=== PATIENT | male | born 1955 | race Caucasian/White ===

== ENCOUNTER → 2019-08-20 14:45 | Outpatient (BNVA) | payer SELFPAY | PROVIDERS: Family Provider Nurse Practitioner; PCP Nurse Practitioner; Visit Provider Nurse Practitioner | DX: I10 Essential (primary) hypertension (principal); E78.2 Mixed hyperlipidemia; E11.65 Type 2 diabetes mellitus with hyperglycemia; Z79.4 Long term (current) use of insulin | CPT/HCPCS: 80053; 80061; 81000; 83036 ==

== ENCOUNTER 2020-02-02 13:03 | Inpatient (IN) | payer MEDICARE, SELFPAY ==
[2020-02-02] VITALS (52 sets, daily range): BP systolic 121–178; BP diastolic 71–98; PULSE 78–124; RESP 1–20; TEMP 36.4–36.6; O2SAT 68–99; BMI 26.4
--- NOTE | 2020-02-02 13:29 | W.ED.GENADLT ---
Documented by User: LOLIS Lozoya 02/02/20 15:00 HPI - General Adult General: Chief complaint: General Medical Stated complaint: back pain, decreased intake Time Seen by Provider: 02/02/20 13:20 History of Present Illness: HPI narrative: Presents with complaint of worsening back pain that has gone down his left leg but is in the left lower sided back that he has had it for about 3 weeks has decreased intake over the last couple weeks he said he just hurts so bad he did not feel like eating has been taking Tylenol and Aleve without much relief. Patient has a history of chronic low back problems. Has been to multiple ERs for this. Patient is also diabetic. Patient said he is not taking much fluids but he has been urinating. Just not been eating food because of the pain. Has had some abdominal discomfort just drinking Pedialyte Onset (ago): week(s) Location: back Radiation: extremity Severity: severe Severity scale (1-10): 10 Quality: aching Pain Consistency: constant Relieving factors: immobilization Exacerbating factors: movement Associated symptoms: Reports decreased appetite; Deny chest pain, dyspnea, headache(s), nausea, rash or vomiting Treatments prior to arrival: NSAID, aspirin and cold therapy Review of Systems Const: Denies: fever(s), chills or body aches Eyes: Denies: change in vision or blurry vision ENMT: Denies: throat pain or nasal congestion Card: Denies: chest pain or dyspnea on exertion Resp: Denies: dyspnea, productive cough or non-productive cough GI: Reports: abdominal pain; Denies: nausea or vomiting : Denies: difficulty urinating Musc: Reports: back pain (Patient complains about low back pain with sciatica down left leg at times but pain in his low back is since been quite a while he states); Denies: extremity pain Skin/Breast: Denies: rash Neuro: Denies: headache(s) Psych: Denies: anxiety or depression Mode/Lymph: Denies: easy bruising [facility] PFSH: Medical History (Updated 02/02/20 @ 15:42 by Judith Booth) Controlled diabetes mellitus with hyperglycemia, with long-term current use of insulin Diabetic neuropathy Essential (primary) hypertension Mixed hyperlipidemia Personal history of nicotine dependence Surgical History No history of previous surgery Family History Other Diabetes Heart disease Social History (Updated 02/02/20 @ 13:17 by Ben Jain RN) Smoking and tobacco status: current every day smoker Second hand smoke exposure: Yes Smoking risk assessment/counseling performed?: Yes Alcohol intake: current Alcohol intake frequency: few times a month Substance/Drug Use: never Desire information about substance/drug rehabilitation?: No Counseling given: No Caregiver/support person: No Lives independently: Yes Household members: none Housing: House Marital status: service: No Current occupational status: employed Current occupational exposures/hazards: No History of recent travel: No Current gender identity: Male Physical Exam Narrative: EXAM NARRATIVE: Patient has ketone smell to his breath Const: COMMON NORMALS: no acute distress, average body habitus and patient oriented x3 HENMT: COMMON NORMALS: normocephalic HEAD & SCALP: normal to inspection and normocephalic FACE & SINUS: normal facial exam Eye: COMMON NORMALS: conjunctivae normal GENERAL EYE: appearance normal, both eyes and all related structures CONJUNCTIVA: Yes conjunctivae normal Neck/C-Spine: COMMON NORMALS: no JVD Chest: COMMONS NORMALS: normal inspection of the chest Resp: COMMON NORMALS: normal respiratory effort and clear to auscultation bilaterally AUSCULTATION: clear to auscultation bilaterally Cardio: COMMON NORMALS: no JVD, regular rate and regular rhythm RATE: regular rate RHYTHM: regular rhythm GI: COMMON NORMALS: Normal to inspection, nondistended, normoactive bowel sounds present : COMMON NORMALS: Yes no CVA tenderness BLADDER/KIDNEY EXAM: Yes no CVA tenderness Back/Pelvis: COMMON NORMALS: no CVA tenderness LUMBAR SPINE/LOWER BACK: Yes normal to inspection OTHER: Patient laying on his right side he does not really want to move because he said he is found in sweets but has no tenderness to the sciatic nerve but it is slightly inflamed because he said feels me pushing on it. Neurovascular distal appears intact abdomen soft nontender no flank pain Extremity: COMMON NORMALS: normal to inspection and full ROM Neuro: COMMON NORMALS: patient oriented x3 Course Vital Signs: Vital signs: Vital Signs Temperature 97.6 F 02/02/20 13:11 Pulse Rate 78 02/02/20 14:44 Respiratory Rate 17 02/02/20 14:47 Blood Pressure 144/82 02/02/20 14:44 Pulse Oximetry 92 02/02/20 14:47 MDM - General Adult Lab Data: Labs: Lab Results 02/02/20 02/02/20 02/02/20 Range/Units 13:35 13:35 13:35 WBC 13.6 H (4.0-10.0) 10^3/ uL RBC 5.09 (4.1-5.3) 10^6/u L Hgb 17.9 H (11.7-16.6) g/dL Hct 51.1 (42.0-52.0) % MCV 100.4 H (80-94) fL MCH 35.2 H (28.0-34.0) pg MCHC 35.0 (30.0-36.0) g/dL RDW 11.9 L (12.1-15.1) % Plt Count 344 (130-400) 10^3/c mm MPV 9.3 (7.4-10.4) fL Neut % (Auto) 74.0 % Lymph % (Auto) 13.4 % [place] % (Auto) 9.3 % Eos % (Auto) 1.9 % Baso % (Auto) 1.1 % Neut # (Auto) 10.04 H (1.8-7.7) 10^3/u L Lymph # (Auto) 1.8 (0.8-4.8) 10^3/u L [place] # (Auto) 1.3 H (0.2-0.9) 10^3/u L Eos # (Auto) 0.3 (0.0-0.8) 10^3/u L Baso # (Auto) 0.2 H (0.0-0.1) 10^3/u L Nucleated RBC % (a uto) 0 % Nucleated RBCs # 0.0 /100WBC ESR 7 (0-10) mm/hr Specimen Type Sample Site ABG pH (7.35-7.45) ABG pCO2 (35-45) mmHg ABG pO2 (80.0-100.0) mmH g ABG HCO3 (22-26) mmol/L ABG Base Excess (-2.0-2.0) mmol/ L Nikhil Test Hematocrit (42-52) % O2 Delivery Device FiO2 % Manufacturing Engineer Chief ID Sodium 130 L (136-145) mmol/L Potassium 4.4 (3.5-5.1) mmol/L Chloride 91 L (98-107) mmol/L Carbon Dioxide 10 L (22-29) mmol/L Anion Gap 33.4 H (5-19) BUN 25 H (8-23) mg/dL Creatinine 1.3 H (0.7-1.2) mg/dL GFR Calculation 55.4 L (90-130) mL/min Glucose 411 H (65-115) mg/dL Calculated Osmolal ity 284 L (285-295) mOsm/k g Lactate (0.5-2.2) mmol/L Calcium 9.6 (8.5-10.5) mg/dL Total Bilirubin 0.6 (0.15-1.2) mg/dL AST 8 (0-40) U/L ALT 9 (0-41) U/L Alkaline Phosphata se 93 (40-130) IU/L Troponin T Baselin e (0-15) ng/L C-Reactive Protein 1.3 (0.0-4.9) mg/L Total Protein 7.0 (6.6-8.7) g/dL Albumin 4.0 (3.5-5.2) g/dL Globulin 3.0 (1.3-4.6) g/dL Lipase 19 (13-60) U/L Urine Color (Yellow) Urine Appearance (CLEAR) Urine pH (5-7) Ur Specific Gravit y (1.005-1.030) Urine Protein (Negative) Urine Glucose (UA) (Normal) Urine Ketones (Negative) Urine Blood (Negative) Urine Nitrate (Negative) Urine Bilirubin (NEGATIVE) Urine Urobilinogen (Negative) mg/dL Ur Leukocyte Greta ase (Negative) Serum Ketones (Negative) 02/02/20 02/02/20 02/02/20 Range/Units 13:35 13:35 13:35 WBC (4.0-10.0) 10^3/ uL RBC (4.1-5.3) 10^6/u L Hgb (11.7-16.6) g/dL Hct (42.0-52.0) % MCV (80-94) fL MCH (28.0-34.0) pg MCHC (30.0-36.0) g/dL RDW (12.1-15.1) % Plt Count (130-400) 10^3/c mm MPV (7.4-10.4) fL Neut % (Auto) % Lymph % (Auto) % [place] % (Auto) % Eos % (Auto) % Baso % (Auto) % Neut # (Auto) (1.8-7.7) 10^3/u L Lymph # (Auto) (0.8-4.8) 10^3/u L [place] # (Auto) (0.2-0.9) 10^3/u L Eos # (Auto) (0.0-0.8) 10^3/u L Baso # (Auto) (0.0-0.1) 10^3/u L Nucleated RBC % (a uto) % Nucleated RBCs # /100WBC ESR (0-10) mm/hr Specimen Type Sample Site ABG pH (7.35-7.45) ABG pCO2 (35-45) mmHg ABG pO2 (80.0-100.0) mmH g ABG HCO3 (22-26) mmol/L ABG Base Excess (-2.0-2.0) mmol/ L Nikhil Test Hematocrit (42-52) % O2 Delivery Device FiO2 % Manufacturing Engineer Chief ID Sodium (136-145) mmol/L Potassium (3.5-5.1) mmol/L Chloride (98-107) mmol/L Carbon Dioxide (22-29) mmol/L Anion Gap (5-19) BUN (8-23) mg/dL Creatinine (0.7-1.2) mg/dL GFR Calculation (90-130) mL/min Glucose (65-115) mg/dL Calculated Osmolal ity (285-295) mOsm/k g Lactate 2.3 H (0.5-2.2) mmol/L Calcium (8.5-10.5) mg/dL Total Bilirubin (0.15-1.2) mg/dL AST (0-40) U/L ALT (0-41) U/L Alkaline Phosphata se (40-130) IU/L Troponin T Baselin e 16 H (0-15) ng/L C-Reactive Protein (0.0-4.9) mg/L Total Protein (6.6-8.7) g/dL Albumin (3.5-5.2) g/dL Globulin (1.3-4.6) g/dL Lipase (13-60) U/L Urine Color (Yellow) Urine Appearance (CLEAR) Urine pH (5-7) Ur Specific Gravit y (1.005-1.030) Urine Protein (Negative) Urine Glucose (UA) (Normal) Urine Ketones (Negative) Urine Blood (Negative) Urine Nitrate (Negative) Urine Bilirubin (NEGATIVE) Urine Urobilinogen (Negative) mg/dL Ur Leukocyte Greta ase (Negative) Serum Ketones Positive H (Negative) 02/02/20 02/02/20 Range/Units 14:08 15:16 WBC (4.0-10.0) 10^3/ uL RBC (4.1-5.3) 10^6/u L Hgb (11.7-16.6) g/dL Hct (42.0-52.0) % MCV (80-94) fL MCH (28.0-34.0) pg MCHC (30.0-36.0) g/dL RDW (12.1-15.1) % Plt Count (130-400) 10^3/c mm MPV (7.4-10.4) fL Neut % (Auto) % Lymph % (Auto) % [place] % (Auto) % Eos % (Auto) % Baso % (Auto) % Neut # (Auto) (1.8-7.7) 10^3/u L Lymph # (Auto) (0.8-4.8) 10^3/u L [place] # (Auto) (0.2-0.9) 10^3/u L Eos # (Auto) (0.0-0.8) 10^3/u L Baso # (Auto) (0.0-0.1) 10^3/u L Nucleated RBC % (a uto) % Nucleated RBCs # /100WBC ESR (0-10) mm/hr Specimen Type Arterial Sample Site Radial, left ABG pH 7.25 L (7.35-7.45) ABG pCO2 19.3 L* (35-45) mmHg ABG pO2 118.0 H (80.0-100.0) mmH g ABG HCO3 8.5 L (22-26) mmol/L ABG Base Excess -16.1 L (-2.0-2.0) mmol/ L Nikhil Test Pos Hematocrit 52.5 H (42-52) % O2 Delivery Device Room air FiO2 21.0 % Manufacturing Engineer Chief ID Amh Sodium (136-145) mmol/L Potassium (3.5-5.1) mmol/L Chloride (98-107) mmol/L Carbon Dioxide (22-29) mmol/L Anion Gap (5-19) BUN (8-23) mg/dL Creatinine (0.7-1.2) mg/dL GFR Calculation (90-130) mL/min Glucose (65-115) mg/dL Calculated Osmolal ity (285-295) mOsm/k g Lactate (0.5-2.2) mmol/L Calcium (8.5-10.5) mg/dL Total Bilirubin (0.15-1.2) mg/dL AST (0-40) U/L ALT (0-41) U/L Alkaline Phosphata se (40-130) IU/L Troponin T Baselin e (0-15) ng/L C-Reactive Protein (0.0-4.9) mg/L Total Protein (6.6-8.7) g/dL Albumin (3.5-5.2) g/dL Globulin (1.3-4.6) g/dL Lipase (13-60) U/L Urine Color Yellow (Yellow) Urine Appearance Clear (CLEAR) Urine pH 5 (5-7) Ur Specific Gravit y 1.020 (1.005-1.030) Urine Protein Neg (Negative) Urine Glucose (UA) 4+ H (Normal) Urine Ketones 2+ H (Negative) Urine Blood Neg (Negative) Urine Nitrate Negative (Negative) Urine Bilirubin Neg (NEGATIVE) Urine Urobilinogen Norm (Negative) mg/dL Ur Leukocyte Greta ase Negative (Negative) Serum Ketones (Negative) EKG Data^: EKG 1: Computer generated interpretation: Abdomen/Pelvis CT 02/02/20 14:58 IMPRESSION: 1. Cholelithiasis without acute cholecystitis. 2. Normal appendix. 3. Metallic artifact in the LEFT lower quadrant. Uncertain etiology and this may be within the lumen of the colon. No perforation or free fluid. Chest X-Ray 02/02/20 15:07 IMPRESSION: No acute findings. Discharge Plan Discharge Patient Disposition: Admitted As Inpatient Clinical Impression: Diabetic ketoacidosis Qualifiers: Diabetes mellitus type: type 1 Diabetes mellitus complication detail: without coma Qualified Code(s): E10.10 - Type 1 diabetes mellitus with ketoacidosis without coma Condition: Stable Referrals: Andrei Puckett FNP-C [Primary Care Provider] - Sign Out Sign Out Data: Patient Sign Out occurred on 02/02/20 at 15:16. Patient's care was discussed, and care was transferred from to Judith Booth. Coding Level of Care Code ED Product Info Specialist for Chg Fwd Exam Comprehensive Documented by User: Judith Booth 02/02/20 15:56 HPI - General Adult General: Chief complaint: General Medical Stated complaint: back pain, decreased intake Time Seen by Provider: 02/02/20 13:20 PFSH ED PFSH: Medical History (Updated 02/02/20 @ 15:42 by Judith Booth) Controlled diabetes mellitus with hyperglycemia, with long-term current use of insulin Diabetic neuropathy Essential (primary) hypertension Mixed hyperlipidemia Personal history of nicotine dependence Surgical History No history of previous surgery Family History Other Diabetes Heart disease Social History (Updated 02/02/20 @ 13:17 by Ben Jain RN) Smoking and tobacco status: current every day smoker Second hand smoke exposure: Yes Smoking risk assessment/counseling performed?: Yes Alcohol intake: current Alcohol intake frequency: few times a month Substance/Drug Use: never Desire information about substance/drug rehabilitation?: No Counseling given: No Caregiver/support person: No Lives independently: Yes Household members: none Housing: House Marital status: service: No Current occupational status: employed Current occupational exposures/hazards: No History of recent travel: No Current gender identity: Male Course Vital Signs: Vital signs: Vital Signs Temperature 97.6 F 02/02/20 13:11 Pulse Rate 78 02/02/20 14:44 Respiratory Rate 17 02/02/20 14:47 Blood Pressure 144/82 02/02/20 14:44 Pulse Oximetry 92 02/02/20 14:47 MDM - General Adult MDM Narrative: Medical decision making narrative: [id number] -the case was reviewed with Dr. Hewitt, he will come and admit the patient. He is aware cardiac enzymes and CT abdomen pelvis are pending. Insulin drip protocol has been begun and IV fluids are infusing. Lab Data: Attestation: I reviewed the patient's lab results. Labs: Lab Results 02/02/20 02/02/20 02/02/20 Range/Units 13:35 13:35 13:35 WBC 13.6 H (4.0-10.0) 10^3/ uL RBC 5.09 (4.1-5.3) 10^6/u L Hgb 17.9 H (11.7-16.6) g/dL Hct 51.1 (42.0-52.0) % MCV 100.4 H (80-94) fL MCH 35.2 H (28.0-34.0) pg MCHC 35.0 (30.0-36.0) g/dL RDW 11.9 L (12.1-15.1) % Plt Count 344 (130-400) 10^3/c mm MPV 9.3 (7.4-10.4) fL Neut % (Auto) 74.0 % Lymph % (Auto) 13.4 % [place] % (Auto) 9.3 % Eos % (Auto) 1.9 % Baso % (Auto) 1.1 % Neut # (Auto) 10.04 H (1.8-7.7) 10^3/u L Lymph # (Auto) 1.8 (0.8-4.8) 10^3/u L [place] # (Auto) 1.3 H (0.2-0.9) 10^3/u L Eos # (Auto) 0.3 (0.0-0.8) 10^3/u L Baso # (Auto) 0.2 H (0.0-0.1) 10^3/u L Nucleated RBC % (a uto) 0 % Nucleated RBCs # 0.0 /100WBC ESR 7 (0-10) mm/hr Specimen Type Sample Site ABG pH (7.35-7.45) ABG pCO2 (35-45) mmHg ABG pO2 (80.0-100.0) mmH g ABG HCO3 (22-26) mmol/L ABG Base Excess (-2.0-2.0) mmol/ L Nikhil Test Hematocrit (42-52) % O2 Delivery Device FiO2 % Manufacturing Engineer Chief ID Sodium 130 L (136-145) mmol/L Potassium 4.4 (3.5-5.1) mmol/L Chloride 91 L (98-107) mmol/L Carbon Dioxide 10 L (22-29) mmol/L Anion Gap 33.4 H (5-19) BUN 25 H (8-23) mg/dL Creatinine 1.3 H (0.7-1.2) mg/dL GFR Calculation 55.4 L (90-130) mL/min Glucose 411 H (65-115) mg/dL Calculated Osmolal ity 284 L (285-295) mOsm/k g Lactate (0.5-2.2) mmol/L Calcium 9.6 (8.5-10.5) mg/dL Total Bilirubin 0.6 (0.15-1.2) mg/dL AST 8 (0-40) U/L ALT 9 (0-41) U/L Alkaline Phosphata se 93 (40-130) IU/L Troponin T Baselin e (0-15) ng/L C-Reactive Protein 1.3 (0.0-4.9) mg/L Total Protein 7.0 (6.6-8.7) g/dL Albumin 4.0 (3.5-5.2) g/dL Globulin 3.0 (1.3-4.6) g/dL Lipase 19 (13-60) U/L Urine Color (Yellow) Urine Appearance (CLEAR) Urine pH (5-7) Ur Specific Gravit y (1.005-1.030) Urine Protein (Negative) Urine Glucose (UA) (Normal) Urine Ketones (Negative) Urine Blood (Negative) Urine Nitrate (Negative) Urine Bilirubin (NEGATIVE) Urine Urobilinogen (Negative) mg/dL Ur Leukocyte Greta ase (Negative) Serum Ketones (Negative) 02/02/20 02/02/20 02/02/20 Range/Units 13:35 13:35 13:35 WBC (4.0-10.0) 10^3/ uL RBC (4.1-5.3) 10^6/u L Hgb (11.7-16.6) g/dL Hct (42.0-52.0) % MCV (80-94) fL MCH (28.0-34.0) pg MCHC (30.0-36.0) g/dL RDW (12.1-15.1) % Plt Count (130-400) 10^3/c mm MPV (7.4-10.4) fL Neut % (Auto) % Lymph % (Auto) % [place] % (Auto) % Eos % (Auto) % Baso % (Auto) % Neut # (Auto) (1.8-7.7) 10^3/u L Lymph # (Auto) (0.8-4.8) 10^3/u L [place] # (Auto) (0.2-0.9) 10^3/u L Eos # (Auto) (0.0-0.8) 10^3/u L Baso # (Auto) (0.0-0.1) 10^3/u L Nucleated RBC % (a uto) % Nucleated RBCs # /100WBC ESR (0-10) mm/hr Specimen Type Sample Site ABG pH (7.35-7.45) ABG pCO2 (35-45) mmHg ABG pO2 (80.0-100.0) mmH g ABG HCO3 (22-26) mmol/L ABG Base Excess (-2.0-2.0) mmol/ L Nikhil Test Hematocrit (42-52) % O2 Delivery Device FiO2 % Manufacturing Engineer Chief ID Sodium (136-145) mmol/L Potassium (3.5-5.1) mmol/L Chloride (98-107) mmol/L Carbon Dioxide (22-29) mmol/L Anion Gap (5-19) BUN (8-23) mg/dL Creatinine (0.7-1.2) mg/dL GFR Calculation (90-130) mL/min Glucose (65-115) mg/dL Calculated Osmolal ity (285-295) mOsm/k g Lactate 2.3 H (0.5-2.2) mmol/L Calcium (8.5-10.5) mg/dL Total Bilirubin (0.15-1.2) mg/dL AST (0-40) U/L ALT (0-41) U/L Alkaline Phosphata se (40-130) IU/L Troponin T Baselin e 16 H (0-15) ng/L C-Reactive Protein (0.0-4.9) mg/L Total Protein (6.6-8.7) g/dL Albumin (3.5-5.2) g/dL Globulin (1.3-4.6) g/dL Lipase (13-60) U/L Urine Color (Yellow) Urine Appearance (CLEAR) Urine pH (5-7) Ur Specific Gravit y (1.005-1.030) Urine Protein (Negative) Urine Glucose (UA) (Normal) Urine Ketones (Negative) Urine Blood (Negative) Urine Nitrate (Negative) Urine Bilirubin (NEGATIVE) Urine Urobilinogen (Negative) mg/dL Ur Leukocyte Greta ase (Negative) Serum Ketones Positive H (Negative) 02/02/20 02/02/20 Range/Units 14:08 15:16 WBC (4.0-10.0) 10^3/ uL RBC (4.1-5.3) 10^6/u L Hgb (11.7-16.6) g/dL Hct (42.0-52.0) % MCV (80-94) fL MCH (28.0-34.0) pg MCHC (30.0-36.0) g/dL RDW (12.1-15.1) % Plt Count (130-400) 10^3/c mm MPV (7.4-10.4) fL Neut % (Auto) % Lymph % (Auto) % [place] % (Auto) % Eos % (Auto) % Baso % (Auto) % Neut # (Auto) (1.8-7.7) 10^3/u L Lymph # (Auto) (0.8-4.8) 10^3/u L [place] # (Auto) (0.2-0.9) 10^3/u L Eos # (Auto) (0.0-0.8) 10^3/u L Baso # (Auto) (0.0-0.1) 10^3/u L Nucleated RBC % (a uto) % Nucleated RBCs # /100WBC ESR (0-10) mm/hr Specimen Type Arterial Sample Site Radial, left ABG pH 7.25 L (7.35-7.45) ABG pCO2 19.3 L* (35-45) mmHg ABG pO2 118.0 H (80.0-100.0) mmH g ABG HCO3 8.5 L (22-26) mmol/L ABG Base Excess -16.1 L (-2.0-2.0) mmol/ L Nikhil Test Pos Hematocrit 52.5 H (42-52) % O2 Delivery Device Room air FiO2 21.0 % Manufacturing Engineer Chief ID Amh Sodium (136-145) mmol/L Potassium (3.5-5.1) mmol/L Chloride (98-107) mmol/L Carbon Dioxide (22-29) mmol/L Anion Gap (5-19) BUN (8-23) mg/dL Creatinine (0.7-1.2) mg/dL GFR Calculation (90-130) mL/min Glucose (65-115) mg/dL Calculated Osmolal ity (285-295) mOsm/k g Lactate (0.5-2.2) mmol/L Calcium (8.5-10.5) mg/dL Total Bilirubin (0.15-1.2) mg/dL AST (0-40) U/L ALT (0-41) U/L Alkaline Phosphata se (40-130) IU/L Troponin T Baselin e (0-15) ng/L C-Reactive Protein (0.0-4.9) mg/L Total Protein (6.6-8.7) g/dL Albumin (3.5-5.2) g/dL Globulin (1.3-4.6) g/dL Lipase (13-60) U/L Urine Color Yellow (Yellow) Urine Appearance Clear (CLEAR) Urine pH 5 (5-7) Ur Specific Gravit y 1.020 (1.005-1.030) Urine Protein Neg (Negative) Urine Glucose (UA) 4+ H (Normal) Urine Ketones 2+ H (Negative) Urine Blood Neg (Negative) Urine Nitrate Negative (Negative) Urine Bilirubin Neg (NEGATIVE) Urine Urobilinogen Norm (Negative) mg/dL Ur Leukocyte Greta ase Negative (Negative) Serum Ketones (Negative) Imaging Data^: CXR: Attestation: I personally reviewed and interpreted this imaging study as follows: My impression: No acute cardiopulmonary findings. CT Abd/Pel: Radiologist's impression: [facility] [address] [place] [address] CT Scan Report Signed Patient: Varinder Andrew Unit #: [id number] : 1955 Age/Sex: 64 / M ADM Date: 02/02/20 Loc: ER Room/Bed: Attending Dr: Ordering Provider/Ordering MD: Markie Greenwood Sr, RETAIL BUSINESS MANAGER- Date of Service: 02/02/20 Procedure(s): CT abdomen pelvis w con* [id number] Accession Number(s): [id number] Report Number: [id number] WS: [id number] CT ABDOMEN AND PELVIS WITH CONTRAST HISTORY: LBp , left side sciatica, DKA TECHNIQUE: Imaging performed of the abdomen and pelvis with IV contrast. Single phase imaging of the abdomen. Coronal and sagittal reformats are submitted. All CT scans at [facility] use at least one of these dose optimization techniques: automated exposure control; mA and/or kV adjustment per patient size (includes targeted exams where dose is matched to clinical indication); or iterative reconstruction. IV CONTRAST: Omnipaque 300; 95 mL IV. Oral contrast: No DLP: 630.37 mGy.cm COMPARISON: None available. Lower thorax: Lung bases are clear. Heart is normal size. No hiatal hernia. Liver/biliary system: Normal size with no intrahepatic dilatation. Gallbladder: Increased density in the gallbladder is probably a stone. No adjacent inflammation. Pancreas: Normal. Spleen: Normal. Adrenal glands: Normal. Right kidney: Mild perinephric stranding. No obstruction. No solid mass. Left kidney: Mild perinephric stranding. No obstruction or solid mass. Aorta: Mild atherosclerosis with no aneurysm. Lymphadenopathy: None. Free fluid: None. GI tract: Normal appendix. No obstruction. No mucosal thickening. There is a foreign body with artifact in the LEFT lower quadrant. Abdominal wall: Unremarkable abdominal wall. No hernia. Pelvis: Normal. Bones: Severe degenerative disc disease at L4-5 and small endplate osteophytes. CT/CT abdomen pelvis w con* [id number] IMPRESSION: 1. Cholelithiasis without acute cholecystitis. 2. Normal appendix. 3. Metallic artifact in the LEFT lower quadrant. Uncertain etiology and this may be within the lumen of the colon. No perforation or free fluid. Dictated By: Mery Diaz DO Signed By: Mery Diaz DO Signed Date/Time: 02/02/201546 DD/ 154 EKG Data^: EKG 1: Attestation: I personally reviewed and interpreted this EKG as follows: EKG interpretation date: 02/02/20 EKG interpretation time: 14:00 Interpretation: Sinus tachycardia at 102 beats a minute, no blocks, normal intervals, interventricular conduction delay, normal axis, no acute ST or T wave changes. Computer generated interpretation: Abdomen/Pelvis CT 02/02/20 14:58 IMPRESSION: 1. Cholelithiasis without acute cholecystitis. 2. Normal appendix. 3. Metallic artifact in the LEFT lower quadrant. Uncertain etiology and this may be within the lumen of the colon. No perforation or free fluid. Chest X-Ray 02/02/20 15:07 IMPRESSION: No acute findings. Discharge Plan Discharge Patient Disposition: Admitted As Inpatient Clinical Impression: Diabetic ketoacidosis Qualifiers: Diabetes mellitus type: type 1 Diabetes mellitus complication detail: without coma Qualified Code(s): E10.10 - Type 1 diabetes mellitus with ketoacidosis without coma Condition: Stable Referrals: Andrei Puckett, RETAIL BUSINESS MANAGER-C [Primary Care Provider] - Sign Out Sign Out Data: Patient Sign Out occurred on 02/02/20 at 15:16. Patient's care was discussed, and care was transferred from to [facility]. Coding Level of Care Code ED Product Info Specialist for Martine Fwd Exam Comprehensive
--- NOTE | 2020-02-02 13:33 | ECG_ITS ---
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 Measurements Intervals [place] Rate: 102 P: 74 TN: 162 QRS: 70 QRSD: 108 T: 8 QT: 340 QTc: 443 Interpretive Statements SINUS TACHYCARDIA NONSPECIFIC ST & T-WAVE ABNORMALITY No previous ECG available for comparison Electronically Signed On 02-02-2020 20:36:26 CDT by Sarah Sanders M.D. [email or web address]
[2020-02-02 13:50] LABS: Basophils # 0.2 10^3/uL (0.0-0.1); Basophils % 1.1 %; Eosinophils # 0.3 10^3/uL (0.0-0.8); Eosinophils % 1.9 %; Hematocrit 51.1 % (42.0-52.0); Hemoglobin 17.9 g/dL (11.7-16.6); Lymphocytes # 1.8 10^3/uL (0.8-4.8); Lymphocytes % 13.4 %; Mean Corpuscular Hemoglobin 35.2 pg (28.0-34.0); Mean Corpuscular Volume 100.4 fL (80-94); Mean Platelet Volume 9.3 fL (7.4-10.4); Monocytes # 1.3 10^3/uL (0.2-0.9); Monocytes % 9.3 %; Neutrophils # 10.04 10^3/uL (1.8-7.7); Nucleated Red Blood Cells % 0 %; Platelet Count 344 10^3/cmm (130-400); Red Blood Count 5.09 10^6/uL (4.1-5.3); Red Cell Distribution Width 11.9 % (12.1-15.1); White Blood Count 13.6 10^3/uL (4.0-10.0)
[2020-02-02 13:56] LABS: Ketone (Acetest) Serum Positive (Negative)
[2020-02-02 14:03] LABS: Lactate (Lactic Acid level) 2.3 mmol/L (0.5-2.2)
[2020-02-02 14:08] LABS: Alanine Aminotransferase 9 U/L (0-41); Alkaline Phosphatase 93 IU/L (40-130); Anion Gap 33.4 (5-19); Aspartate Amino Transferase 8 U/L (0-40); Blood Urea Nitrogen 25 mg/dL (8-23); C Reactive Protein 1.3 mg/L (0.0-4.9); Calcium 9.6 mg/dL (8.5-10.5); Carbon Dioxide 10 mmol/L (22-29); Chloride 91 mmol/L (98-107); Glomerular Filtration Rate 55.4 mL/min (90-130); Glucose 411 mg/dL (65-115); Lipase 19 U/L (13-60); Osmolality Calculated 284 mOsm/kg (285-295); Potassium 4.4 mmol/L (3.5-5.1); Sodium 130 mmol/L (136-145); Total Bilirubin 0.6 mg/dL (0.15-1.2)
[2020-02-02 14:32] LABS: Add Urine Microscopic? NO
[2020-02-02 14:40] LABS: Glucose Urine UA 4+ (Normal); Protein Urine Neg (Negative); Urine Appearance Clear (CLEAR); Urine Color Yellow (Yellow); pH Urine 5 (5-7)
[2020-02-02 14:41] LABS: Bilirubin Urine Neg (NEGATIVE); Blood Urine Neg (Negative); Ketones Urine 2+ (Negative); Leukocyte Esterase Urine Negative (Negative); Nitrate Urine Negative (Negative); Urobilinogen Urine Norm (Negative)
[2020-02-02] MEDS: morphine 4 mg/mL SDV 1 mL IVP ×2 (14:47→20:02)
[2020-02-02] MEDS: ondansetron 2 mg/ML SDV 2 mL 4 MG IVP ×2 (14:48→23:35)
[2020-02-02] MEDS: sodium chloride 0.9% 1,000 ML 999 ML IV ×3 (14:49→16:07)
[2020-02-02 14:52] LABS: Erythrocyte Sedimentation Rate 7 mm/hr (0-10)
--- NOTE | 2020-02-02 14:58 | CT_ITS ---
WS: [id number] CT ABDOMEN AND PELVIS WITH CONTRAST HISTORY: LBp , left side sciatica, DKA TECHNIQUE: Imaging performed of the abdomen and pelvis with IV contrast. Single phase imaging of the abdomen. Coronal and sagittal reformats are submitted. All CT scans at [facility] use at least one of these dose optimization techniques: automated exposure control; mA and/or kV adjustment per patient size (includes targeted exams where dose is matched to clinical indication); or iterativ e reconstruction. IV CONTRAST: Omnipaque 300; 95 mL IV. Oral contrast: No DLP: 630.37 mGy.cm COMPARISON: None available. Lower thorax: Lung bases are clear. Heart is normal size. No hiatal hernia. Liver/biliary system: Normal size with no intrahepatic dilatation. Gallbladder: Increased density in the gallbladder is probably a stone. No adjacent inflammation. Pancreas: Normal. Spleen: Normal. Adrenal glands: Normal. Right kidney: Mild perinephric stranding. No obstruction. No solid mass. Left kidney: Mild perinephric stranding. No obstruction or solid mass. Aorta: Mild atherosclerosis with no aneurysm. Lymphadenopathy: None. Free fluid: None. GI tract: Normal appendix. No obstruction. No mucosal thickening. There is a foreign body with artifa ct in the LEFT lower quadrant. Abdominal wall: Unremarkable abdominal wall. No hernia. Pelvis: Normal. Bones: Severe degenerative disc disease at L4-5 and small endplate osteophytes. CT/CT abdomen pelvis w con* [id number] IMPRESSION: 1. Cholelithiasis without acute cholecystitis. 2. Normal appendix. 3. Metallic artifact in the LEFT lower quadrant. Uncertain etiology and this m ay be within the lumen of the colon. No perforation or free fluid.
--- NOTE | 2020-02-02 15:07 | XRR_ITS ---
PROCEDURE INFORMATION: Exam: XR Chest, 1 View Exam date and time: 02/02/2020 3:22 PM Age: 64 years old Clinical indication: Dyspnea; Patient HX: PT uncooperative TECHNIQUE: Imaging protocol: XR of the chest Views: 1 view. COMPARISON: No relevant prior studies available. FINDINGS: Lungs: Unremarkable. No consolidation. Pleural space: Unremarkable. No pleural effusion. No pneumothorax. Heart/Mediastinum: Unremarkable. No cardiomegaly. Bones/joints: Unremarkable. XR/XR chest 1V portable [id number] IMPRESSION: No acute findings.
[2020-02-02 15:27] LABS: ABG PH Result 7.25 (7.35-7.45); Arterial Blood Gas Hematocrit 52.5 % (42-52); Base Excess ABG -16.1 mmol/L (-2.0-2.0); Blood Gas Allen Test Pos; Blood Gas Operator Identificat AMH; Blood Gas Sample Site Radial, left; Blood Gas Sample Type Arterial; HCO3 ABG 8.5 mmol/L (22-26); Oxygen Device ROOM AIR
[2020-02-02 15:28] LABS: ABG PCO2 19.3 mmHg (35-45)
[2020-02-02] MEDS: iodixanol 320 mg/mL 100mL Btl IV (15:41)
[2020-02-02 15:54] LABS: Troponin(5th) Baseline 16 ng/L (0-15)
[2020-02-02 16:30] LABS: Troponin 5 2HR 16.52 ng/L (0-15); Troponin 5 2HR Delta 0.52 ABS# (0-10)
--- NOTE | 2020-02-02 17:03 | P.HP_ITS ---
Providers/Chief Complaint Primary Care Provider: Andrei Puckett, HOME APPLIANCE TECHNICIAN-C Chief Complaint: multiple complaints History of Present Illness Varinder Andrew is a 64 year old male with past medical history of hypertension, type 2 diabetes mellitus who presented to the ER with his daughter today with complaining of decreased oral intake for both solids and liquids for last 3 weeks along with 15 pounds weight loss. Patient states he was trying to lift something heavy 3 weeks ago at which time he started having back pain radiating down to left hip with some numbness and tingling in his foot since then he has not been able to eat anything. He denies of having any nausea, vomiting, abdominal pain, diarrhea, odynophagia, dysphagia while eating. On further interviewing patient states he has been extremely depressed for last 6 months since his and when he hurt his back he got more depressed because of which he thinks that he is not been eating much. Back pain does not wake him up at night and he denies of having any headache, dizziness, chest pain, palpitations, bowel or bladder accidents. He does complain of consti pation with last bowel movement more than 2 weeks ago. He states he thinks he is passing flatus on and off. His blood work in the ER showed white count of 13.6, hemoglobin of 17.9, MCV of 100.4, neutrophil of 10.4, ABG showing a pH of 7.25, CO2 of 19.3, PO2 of 118, sodium of 130, chloride of 91, anion gap of 33, creatinine of 1.3, lactate of 2.3, negative UA, positive ketones with CT abdomen pelvis which was done showing cholelithiasis without cholecystitis. He denies of having any suicidal or homicidal ideations. Review of Systems General: Reports: 10 or more systems reviewed and unremarkable except in HPI and below Const: Denies: fever(s), chills, body aches, change in appetite, change in weight, malaise, night sweats, diaphoresis, change in sleep pattern, daytime sleepiness or snoring Eyes: Denies: change in vision, blurry vision, photophobia, eye discomfort or eye discharge ENMT: Denies: throat pain, enlarged tonsils, hoarseness, mouth pain, oral sores, dry mouth, tinnitus, nasal congestion or post nasal drip Card: Denies: chest pain, palpitations, irregular heart rhythm, edema, swelling of feet/ankles, lightheadedness, syncope, pre-syncope, dyspnea on exertion, orthopnea, leg pain with exertion or acrocyanosis Resp: Denies: dyspnea, productive cough, non-productive cough, wheezing, stridor, pain on inspiration, change in phlegm color, hemoptysis or chest congestion GI: Denies: abdominal pain, nausea, vomiting, hematemesis, coffee ground emesis, dysphagia, heartburn, diarrhea, constipation, bloating, GI cramping, change in bowel habits, pain on defecation, hematochezia or melena : Denies: flank pain, difficulty urinating, dysuria, urinary frequency, urinary urgency, urinary hesitancy, urinary dribbling, difficulty starting urination, change in urine stream, nocturia or hematuria Musc: Denies: neck pain, back pain, extremity pain, joint pain, joint swelling, joint redness, joint stiffness or limited range of motion Neuro: Denies: headache(s), numbness in extremities, weakness in extremities, sensory changes, lack of coordination, difficulty walking, frequent falls, dizziness, vertigo, confusion, Slurred speech present, difficulty communicating thoughts or seizure-like activity Psych: Denies: anxiety, depression, mood swings, panic attacks, hopelessness or irritability Endo: Denies: polyuria, polydipsia, tired all the time, cold intolerance, e xcessive sweating, flushing or heat intolerance Mode/Lymph: Denies: easy bruising or easy bleeding All/Imm: Denies: tongue swelling, facial swelling or acute wheezing Medications/Allergies Home Medications Medication Instructions Recorded Confirmed Last Taken Type aspirin 81 mg tablet,delayed 81 mg PO DAILY 08/20/19 02/02/20 02/02/20 History release atorvastatin 20 mg tablet 20 mg PO DAILY #30 tab 08/20/19 02/02/20 02/02/20 Rx metoprolol tartrate 50 mg tablet 50 mg PO DAILY #30 tab 08/20/19 02/02/20 Rx exenatide 10 mcg SUBCUT BID #2.4 ml 09/30/19 02/02/20 02/01/20 Rx insulin detemir U-100 100 unit/mL 20 unit SUBCUT DAILY #10 ml 10/14/19 02/02/20 02/01/20 Rx subcutaneous solution insulin syringe-needle U-100 1 mL #100 each 10/14/19 02/02/20 Unknown Rx 31 gauge x 5/16 metformin 500 mg tablet,extended 2,000 mg PO DAILY #120 tab 10/14/19 02/02/20 02/01/20 Rx release 24 hr lisinopril 40 mg tablet 40 mg PO DAILY #14 tab 01/28/20 02/02/20 02/01/20 Rx Allergies Allergy/AdvReac Type Severity Reaction Status Date / Time No Known Allergies Allergy Verified 02/02/20 14:27 PFSH Acute PFSH: Medical History (Updated 02/02/20 @ 17:08 by Brian Hewitt MD) Controlled diabetes mellitus with hyperglycemia, with long-term current use of insulin Diabetic neuropathy Essential (primary) hypertension Mixed hyperlipidemia Personal history of nicotine dependence Surgical History No history of previous surgery Family History Other Diabetes Heart disease Social History (Updated 02/02/20 @ 13:17 by Ben Jain RN) Smoking and tobacco status: current every day smoker Second hand smoke exposure: Yes Smoking risk assessment/counseling performed?: Yes Alcohol intake: current Alcohol intake frequency: few times a month Substance/Drug Use: never Desire information about substance/drug rehabilitation?: No Counseling given: No Caregiver/support person: No Lives independently: Yes Household members: none Housing: House Marital status: service: No Current occupational status: employed Current occupational exposures/hazards: No History of recent travel: No Current gender identity: Male Vitals/I&O/Wt Last Vital Signs Temp 97.6 F 02/02/20 13:11 Pulse 78 02/02/20 14:44 Resp 17 02/02/20 14:47 BP 144/82 02/02/20 14:44 Pulse Ox 92 02/02/20 14:47 Weight last 48 hrs Weight 90.718 kg Physical Exam Narrative: EXAM NARRATIVE: General: No acute distress, AO x3, mildly dep ressed, tearful, dehydrated HEENT: PERRLA, pupils bilaterally equal and reactive Chest: Normal vesicular breath sounds, no added sounds, equal good air entry bilaterally CVS: S1-S2 regular, no murmurs, no tachycardia, no gallops, no rubs Abdomen: Soft, nontender, no organomegaly, bowel sounds present Neuro: No focal deficits, no facial deformity, AO x3, power 5/5 in all limbs. Back: No focal point of tenderness. Mild tenderness in left paraspinal area Data : 02/02/20 13:35 02/02/20 13:35 A&P Assessment and plan (1) Diabetic ketoacidosis: Status: Acute Qualifiers: Diabetes mellitus complication detail: without coma Diabetes mellitus type: type 1 Qualified Code(s): E10.10 - Type 1 diabetes mellitus with ketoacidosis without coma (2) Mixed hyperlipidemia: Status: Chronic (3) Controlled diabetes mellitus with hyperglycemia, with long-term current use of insulin: Status: Chronic Qualifiers: Diabetes mellitus type: type 2 Qualified Code(s): E11.65 - Type 2 diabetes mellitus with hyperglycemia; Z79.4 - superintendent container terminal (current) use of insulin (4) Essential (primary) hypertension: Status: Chronic (5) Depression: Status: Acute (6) Back pain: Status: Acute Additional A&P Information Type of diabetes mellitus/DKA: Insulin drip as per DKA protocol. Normal saline 100 cc/h. Once blood glucose is less than 200 start on D5 NS. Replace potassium keeping potassium over 4. Check BMP every 4 hours. Most likely because of sporadic medication use. Will rule out sepsis with blood cultures, lactate, procalcitonin. For now we will hold off on antibiotics. If patient starts having fevers will cover for antibiotics. Check HbA1c, lipid panel. N.p.o. Hold off on oral hypoglycemics for now. Hypertension: Continue home dose of lisinopril. Depression: Not known patient of depression. Denies of suicidal homicidal ideation. Start patient on donepezil. Will get psych evaluation. Back pain: No symptoms concerning for cauda equina. We will do CT thoracic and lumbar spine without contrast. Full code. N.p.o. Lovenox for DVT prophylaxis. Attestations Medical Necessity Statement*: More than 2 midnights for DKA Critical Care Time: Critical Care Time (min): 80 Coding Level of Care Code Acute Brass Wind Instrument Maker for monique Stout Diagnoses Diabetic ketoacidosis E10.10 Diabetes mellitus complication detail: without coma Diabetes mellitus type: type 1 Mixed hyperlipidemia E78.2 Controlled diabetes mellitus with hyperglycemia, with long-term current use of insulin E11.65; Z79.4 Diabetes mellitus type: type 2 Essential (primary) hypertension I10 Depression F32.9 Back pain M54.9
--- NOTE | 2020-02-02 17:13 | CTR_ITS ---
PROCEDURE INFORMATION: Exam: CT Lumbar Spine Without Contrast Exam date and time: 02/02/2020 5:14 PM Age: 64 years old Clinical indication: Low back pain; Additional info: Back pain with radiculopathy TECHNIQUE: Imaging protocol: Computed tomography images of the lumbar spine without contrast. Radiation optimization: All CT scans at this facility use at least one of these dose optimization techniques: automated exposure control; mA and/or kV adjustment per patient size (includes targeted exams where dose is matched to clinical indication); or iterative reconstruction. COMPARISON: No relevant prior studies available. RADIATION DOSE METRICS: Total DLP (mGy-cm): 2870.7 FINDINGS: Vertebrae: The vertebral body heights are maintained. There is no acute fracture or bony destruction. Severe facet degenerative changes are noted in the lower lumbar spine. Discs/Spinal canal/Neural foramina: There is disc space narrowing with marked endplate degenerative changes at L4-L5. At L3-L4, there is severe stenosis of the spinal canal and moderate bilateral foraminal narrowing due to a broad-based disc bulge, severe facet and ligamentum flavum hypertrophy. At L4-L5, there is severe stenosis of the spinal canal and bilateral foramina due to a small disc bulge, exuberant endplate osteophytes and severe facet and ligamentum flavum hypertrophy. There is a tiny disc bulge at L5-S1 without stenosis or foraminal narrowing. At L2-L3, there is a tiny disc bulge with mild narrowing of the central canal mostly due to facet and ligamentum flavum hypertrophy without significant foraminal narrowing. Soft tissues: Unremarkable. CT/CT lumbar spine wo con* [id number] IMPRESSION: 1. At L3-L4, there is severe stenosis of the spinal canal and moderate bilateral foraminal narrowing due to a broad-based disc bulge, severe facet and ligamentum flavum hypertrophy. 2. At L4-L5, there is severe stenosis of the spinal canal and bilateral foramina due to a small disc bulge, exuberant endplate osteophytes and severe facet and ligamentum flavum hypertrophy. 3. No acute bony abnormality. Severe degenerative changes are noted. Radiation Dose CTDIVOL = (mGy): DLP = 2870.7 (mGy-cm)
--- NOTE | 2020-02-02 17:22 | ECG_ITS ---
[facility] Test Date: 2020-02-02 Pat Name: Varinder Andrew Department: Room: ICU10 Gender: Male Manager Infusion: : 1955 Requested By: Judith Boyle Order Number: [id number] Rochelle MD: Sarah Sanders M.D. Measurements Intervals [place] Rate: 114 P: ID: -1 QRS: 58 QRSD: 117 T: 210 QT: 357 QTc: 494 Interpretive Statements SUPRAVENTRICULAR TACHYCARDIA ARTIFACT NON SPECIFIC ST T WAVE ABNORMALITY Compared to ECG 02/02/2020 14:00:16 Myocardial infarct finding now present Sinus tachycardia no longer present T-wave abnormality no longer present Electronically Signed On 02-02-2020 20:58:26 CDT by Sarah Sanders M.D. [id number]
[2020-02-02 17:28] LABS: Thyroid Stimulating Hormone 1.57 uIU/mL (0.27-4.20)
[2020-02-02 17:39] LABS: Anion Gap 38.4 (5-19); Blood Urea Nitrogen 25 mg/dL (8-23); Calcium 9.6 mg/dL (8.5-10.5); Chloride 89 mmol/L (98-107); Glomerular Filtration Rate 55.4 mL/min (90-130); Glucose 407 mg/dL (65-115); Iron 123 ug/dL (59-158); Osmolality Calculated 284 mOsm/kg (285-295); Percent Saturation 59.4 % (20-50); Potassium 4.4 mmol/L (3.5-5.1); Sodium 130 mmol/L (136-145); Total Iron Binding Capacity 207 mcg/dl; Unsaturated Iron Binding 84 ug/dL (112-347)
[2020-02-02 17:45] LABS: Carbon Dioxide 7 mmol/L (22-29)
[2020-02-02 18:18] LABS: Glucose Point of Care 304 mg/dL (70-110)
[2020-02-02 20:17] LABS: Lactic Sepsis W/Reflex 1.4 mmol/L (0.5-2.2)
[2020-02-02 20:22] LABS: Troponin 5 6HR 17.27 ng/L (0-15); Troponin 5 6HR Delta 1.27 ng/L (0-12)
[2020-02-02] MEDS: insulin regular-human 250 UNIT in sodium chloride 0.9% 250 ML 8.2 UNIT IV (20:40)
[2020-02-02] MEDS: sodium chloride 0.9% 1,000 ML 100 ML IV (20:52)
[2020-02-02 21:06] LABS: Anion Gap 24.4 (5-19); Blood Urea Nitrogen 18 mg/dL (8-23); Calcium 9.2 mg/dL (8.5-10.5); Carbon Dioxide 13 mmol/L (22-29); Chloride 101 mmol/L (98-107); Glomerular Filtration Rate 55.4 mL/min (90-130); Glucose 231 mg/dL (65-115); Osmolality Calculated 282 mOsm/kg (285-295); Potassium 4.4 mmol/L (3.5-5.1); Sodium 134 mmol/L (136-145)
[2020-02-02] MEDS: ipratropium-albuterol 3 mL Neb INHALATION (21:27)
[2020-02-02] MEDS: donepezil 5 MG Tablet 10 MG PO (21:34)
[2020-02-02] MEDS: enoxaparin 40 mg/0.4 mL Syringe SUBCUT (21:35)
[2020-02-02] MEDS: famotidine 20 mg/2 mL INJ IVP (21:35)
[2020-02-02 21:56] LABS: Glucose Point of Care 330 mg/dL (70-110)
[2020-02-02 21:56] LABS: Glucose Point of Care 176 mg/dL (70-110)
[2020-02-02 22:34] LABS: Bilirubin Urine Neg (NEGATIVE); Blood Urine Neg (Negative); Glucose Urine UA 4+ (Normal); Ketones Urine 3+ (Negative); Leukocyte Esterase Urine Negative (Negative); Nitrate Urine Negative (Negative); Protein Urine Neg (Negative); Specific Gravity, Urine 1.025 (1.005-1.030); Squamous Epithelial Cell Urine RARE (0-5); Urine Appearance Clear (CLEAR); Urine Color Yellow (Yellow); Urobilinogen Urine Norm (Negative); pH Urine 5 (5-7)
[2020-02-02 23:08] LABS: Glucose Point of Care 230 mg/dL (70-110)
--- NOTE | 2020-02-02 23:40 | PC.NURSE ---
Pt communicated that he was nauseated and about to vomit. Bath tub given, that was immediately used by pt for N/V. Zofran 4mg IVP given to patient, with immediate relief verbalized.
[2020-02-02 23:53] LABS: Glucose Point of Care 136 mg/dL (70-110)
[2020-02-03] VITALS (24 sets, daily range): BP systolic 101–162; BP diastolic 51–82; PULSE 74–93; RESP 0–18; TEMP 35.9–37.2; O2SAT 94–98
[2020-02-03 00:36] LABS: Glucose Point of Care 115 mg/dL (70-110)
[2020-02-03] MEDS: TRAMadol 50 mg Tablet PO ×2 (00:43→11:02)
[2020-02-03] MEDS: dextrose 5 % 500 ML 100 ML IV (00:43)
[2020-02-03] MEDS: promethazine 25 mg/mL SDV 1 mL IM (01:05)
[2020-02-03 01:26] LABS: Anion Gap 21.5 (5-19); Blood Urea Nitrogen 20 mg/dL (8-23); Calcium 8.8 mg/dL (8.5-10.5); Carbon Dioxide 15 mmol/L (22-29); Chloride 103 mmol/L (98-107); Glomerular Filtration Rate 84.7 mL/min (90-130); Glucose 128 mg/dL (65-115); Osmolality Calculated 280 mOsm/kg (285-295); Potassium 3.5 mmol/L (3.5-5.1); Sodium 136 mmol/L (136-145)
[2020-02-03 01:51] LABS: Glucose Point of Care 163 mg/dL (70-110)
[2020-02-03 02:53] LABS: Glucose Point of Care 152 mg/dL (70-110)
[2020-02-03 03:43] LABS: Glucose Point of Care 127 mg/dL (70-110)
[2020-02-03 04:08] LABS: Basophils # 0.1 10^3/uL (0.0-0.1); Basophils % 0.7 %; Eosinophils # 0.1 10^3/uL (0.0-0.8); Hematocrit 42.5 % (42.0-52.0); Hemoglobin 14.8 g/dL (11.7-16.6); Lymphocytes # 0.9 10^3/uL (0.8-4.8); Lymphocytes % 9.2 %; Mean Corpuscular HGB Conc 34.8 g/dL (30.0-36.0); Mean Corpuscular Hemoglobin 34.6 pg (28.0-34.0); Mean Corpuscular Volume 99.3 fL (80-94); Mean Platelet Volume 9.5 fL (7.4-10.4); Monocytes # 0.9 10^3/uL (0.2-0.9); Monocytes % 9.4 %; Neutrophils # 7.59 10^3/uL (1.8-7.7); Neutrophils % 79.4 %; Nucleated Red Blood Cells % 0 %; Platelet Count 243 10^3/cmm (130-400); Red Blood Count 4.28 10^6/uL (4.1-5.3); White Blood Count 9.6 10^3/uL (4.0-10.0)
[2020-02-03 04:33] LABS: Alanine Aminotransferase 7 U/L (0-41); Albumin Level 3.6 g/dL (3.5-5.2); Alkaline Phosphatase 74 IU/L (40-130); Anion Gap 19.6 (5-19); Aspartate Amino Transferase 8 U/L (0-40); Blood Urea Nitrogen 19 mg/dL (8-23); Calcium 8.8 mg/dL (8.5-10.5); Carbon Dioxide 17 mmol/L (22-29); Chloride 103 mmol/L (98-107); Globulin 2.5 g/dL (1.3-4.6); Glucose 149 mg/dL (65-115); Osmolality Calculated 281 mOsm/kg (285-295); Potassium 3.6 mmol/L (3.5-5.1); Sodium 136 mmol/L (136-145); Total Bilirubin 0.4 mg/dL (0.15-1.2); Total Protein 6.1 g/dL (6.6-8.7)
[2020-02-03 04:35] LABS: Estmated Average Glucose 303; Hemoglobin A1C 12.2 % (4.0-6.0)
[2020-02-03 04:40] LABS: Chol HDL Ratio 3.26 mg/dL (1.0-5.00); Cholesterol 111 mg/dL (0-200); HDL Cholesterol 34 mg/dL (60-100); LDL Cholesterol Calculated 61 mg/dL (50-129); Triglycerides 81 mg/dL (0-150); VLDL Cholestrol Calculation 16 mg/dL (0-30)
[2020-02-03 05:01] LABS: Glucose Point of Care 168 mg/dL (70-110)
[2020-02-03] MEDS: dextrose 5%-sod chloride 0.9% 1,000 ML 100 ML IV (05:11)
[2020-02-03 05:56] LABS: Glucose Point of Care 142 mg/dL (70-110)
[2020-02-03 06:43] LABS: Glucose Point of Care 150 mg/dL (70-110)
--- NOTE | 2020-02-03 06:55 | PC.NURSE ---
Report given to oncoming shift RN. No needs verbalized by patient at this time. Insulin drip running @ 0.9mL/hr per protocol. D5 NS @ 100mL/hr
[2020-02-03 08:10] LABS: Glucose Point of Care 163 mg/dL (70-110)
--- NOTE | 2020-02-03 09:09 | XRR_ITS ---
PROCEDURE INFORMATION: Exam: XR Abdomen, 1 View Exam date and time: 02/03/2020 9:34 AM Age: 64 years old Clinical indication: Patient HX: Left lower side back pain; Decreased appetite; Additional info: ? Foriegn body in llq TECHNIQUE: Imaging protocol: XR of the abdomen. Views: Frontal supine view of the abdomen. 1 View. COMPARISON: CT abdomen pelvis w con* [id number] 02/02/2020 3:26 PM FINDINGS: Gastrointestinal tract: Bowel gas pattern is nonspecific. No mass effect upon the bowel loops. Distal rectal gas. Scattered loops of air filled small bowel none of which are dilated. Moderate amount stool within the large bowel. Bones/joints: No acute process within the osseous structures of the spine or pelvis. Soft tissues: No appreciable calcifications Radiopaque density in the left pelvis likely the foreign body noted on the prior CT. XR/XR abdomen 1V* [id number] IMPRESSION: 1. Bowel gas pattern is nonspecific. 2. Moderate amount stool within the large bowel. 3. Radiopaque density in the left pelvis likely the foreign body noted on the prior CT.
[2020-02-03] MEDS: aspirin 81 mg EC Tablet PO (09:17)
[2020-02-03] MEDS: metoprolol tartrate 50 mg Tablet PO (09:17)
[2020-02-03] MEDS: famotidine 20 mg/2 mL INJ IVP ×2 (09:17→20:57)
[2020-02-03] MEDS: lisinopril 20 mg Tablet 40 MG PO (09:17)
[2020-02-03] MEDS: atorvastatin 40 mg Tablet 20 MG PO (09:18)
[2020-02-03 09:20] LABS: Glucose Point of Care 164 mg/dL (70-110)
[2020-02-03 09:43] LABS: Anion Gap 14.7 (5-19); Blood Urea Nitrogen 15 mg/dL (8-23); Calcium 9.1 mg/dL (8.5-10.5); Carbon Dioxide 23 mmol/L (22-29); Chloride 103 mmol/L (98-107); Glomerular Filtration Rate 67.2 mL/min (90-130); Glucose 188 mg/dL (65-115); Osmolality Calculated 285 mOsm/kg (285-295); Potassium 3.7 mmol/L (3.5-5.1); Sodium 137 mmol/L (136-145)
[2020-02-03 10:47] LABS: Glucose Point of Care 241 mg/dL (70-110)
[2020-02-03] MEDS: potassium chloride premix 40 MEQ/100 ML PREMIX 25 MEQ IV (11:02)
[2020-02-03 12:07] LABS: Glucose Point of Care 133 mg/dL (70-110)
--- NOTE | 2020-02-03 12:22 | P.CONIM_ITS ---
Providers/Reason For Consult Consulting Physican/Specialty*: Psychiatry Reason for Consult*: Assess for clinincal depression and treat if needed. Attending Physician: Brian Hewitt MD Primary Care Provider: REID Gerardo History of Present Illness History of Present Illness Varinder Andrew is a 64 year old male with past medical history of hypertension, type 2 diabetes mellitus who presented to the ER with his daughter today with complaining of decreased oral intake for both solids and liquids for last 3 weeks along with 15 pounds weight loss. Patient acknowledged that he was told that he would be seeing a psychiatrist today. He spontaneously reported that it was likely because someone felt that he was clinically depressed. When asked if that seemed accurate, he said it seems reasonable. He says things have been going poorly since his from cancer 6 months ago. He spontaneously reported anhedonia, low motivation, feelings of hopelessness and irritability. On questioning he endorsed the presence of poor concentration, decreased appetite, and attention to self-care especially regarding his own nutrition and insulin regimen. He denied suicidal or homicidal ideation. He denied the presence of auditory or visual hallucinations. There is no indication of a history of manic episodes. There is no history of alcohol or substance abuse as a component to this clinical situation. He had never been hospitalized for mental illness. He was treated with Wellbutrin for years ago because his family reported that he had been very irritable and cranky around them. He denied that he was being treated for depression. However he said that it was effective when he took it for approximately 4 months. He denied side effects to that medication. Meds/Allergies Home Medications and Allergies Home Medications Medication Instructions Recorded Confirmed Last Taken Type aspirin 81 mg tablet,delayed 81 mg PO DAILY 08/20/19 02/02/20 02/02/20 History release atorvastatin 20 mg tablet 20 mg PO DAILY #30 tab 08/20/19 02/02/20 02/02/20 Rx metoprolol tartrate 50 mg tablet 50 mg PO DAILY #30 tab 08/20/19 02/02/20 02/01/20 Rx exenatide 10 mcg SUBCUT BID #2.4 ml 09/30/19 02/02/20 02/01/20 Rx insulin detemir U-100 100 unit/mL 20 unit SUBCUT DAILY #10 ml 10/14/19 02/02/20 02/01/20 Rx subcutaneous solution insulin syringe-needle U-100 1 mL #100 each 10/14/19 02/02/20 Unknown Rx 31 gauge x 5/16 metformin 500 mg tablet,extended 2,000 mg PO DAILY #120 tab 10/14/19 02/02/20 02/01/20 Rx release 24 hr lisinopril 40 mg tablet 40 mg PO DAILY #14 tab 01/28/20 02/02/20 02/01/20 Rx Allergies Allergy/AdvReac Type Severity Reaction Status Date / Time No Known Allergies Allergy Verified 02/02/20 14:27 Current Medications Current Medications Generic Name Dose Route Start Last Admin Trade Name Freq PRN Reason Stop Dose Admin Aspirin 81 mg 02/03/20 09:00 02/03/20 09:17 Aspirin Ec PO 81 mg DAILY MAU Administration Atorvastatin Calcium 20 mg 02/03/20 09:00 02/03/20 09:18 Lipitor PO 20 mg DAILY MAU Administration Donepezil HCl 10 mg 02/02/20 21:00 02/02/20 21:34 Aricept PO 10 mg BEDTIME MAU Administration Enoxaparin Sodium 40 mg 02/02/20 21:00 02/02/20 21:35 Lovenox SUBCUT 40 mg Q24H MAU Administration Famotidine 20 mg 02/02/20 20:29 02/03/20 09:17 Pepcid Inj IVP 20 mg Q12H MAU Administration Dextrose 500 mls @ 100 mls/hr 02/02/20 15:22 02/03/20 05:44 D5w IV Infused ONCE PRN Infusion Adult Acute Hypoglycemia Prot Protocol Insulin Human Regular 250 unit 252.5 mls @ 0 mls/hr 02/02/20 15:30 02/03/20 06:44 / Sodium Chloride IV 0.9 unit/hr .Q0M MAU 0.9 mls/hr Titration Protocol Per Protocol Sodium Chloride 1,000 mls @ 100 mls/hr 02/02/20 17:00 02/03/20 09:14 Sodium Chloride 0.9% IV Not Given .Q10H MAU Dextrose/Sodium Chloride 1,000 mls @ 100 mls/hr 02/02/20 17:00 02/03/20 09:13 Dextrose 5%-Sod Chloride 0.9% IV Not Given .Q10H MAU Potassium Chloride 40 meq in 100 mls @ 25 mls/hr 02/03/20 09:13 02/03/20 11:02 K-Mario IV 02/03/20 13:12 25 mls/hr ONCE ONE Administration Lisinopril 40 mg 02/03/20 09:00 02/03/20 09:17 Prinivil PO 40 mg DAILY MAU Administration Metoprolol Tartrate 50 mg 02/03/20 09:00 02/03/20 09:17 Lopressor PO 50 mg DAILY MAU Administration Ondansetron HCl 4 mg 02/02/20 20:29 02/02/20 23:35 Zofran IVP 4 mg Q8H PRN Administration vomiting, or N/V if npo Promethazine HCl 25 mg 02/03/20 00:53 02/03/20 01:05 Phenergan IM 25 mg Q6H PRN Administration NAUSEA Tramadol HCl 50 mg 02/02/20 17:13 02/03/20 11:02 Ultram PO 50 mg Q6H PRN Administration MODERATE PAIN PFSH Acute PFSH: Medical History (Updated 02/03/20 @ 12:47 by Mitchell Menard MD) Controlled diabetes mellitus with hyperglycemia, with long-term current use of insulin Diabetic neuropathy Essential (primary) hypertension Mixed hyperlipidemia Personal history of nicotine dependence Surgical History No history of previous surgery Family History Other Diabetes Heart disease Social History (Updated 02/02/20 @ 13:17 by Ben Jain RN) Smoking and tobacco status: current every day smoker Second hand smoke exposure: Yes Smoking risk assessment/counseling performed?: Yes Alcohol intake: current Alcohol intake frequency: few times a month Substance/Drug Use: never Desire information about substance/drug rehabilitation?: No Counseling given: No Caregiver/support person: No Lives independently: Yes Household members: none Housing: House Marital status: service: No Current occupational status: employed Current occupational exposures/hazards: No History of recent travel: No Current gender identity: Male Vitals/I&O/Wt Last Vital Signs Temp 97.9 F 02/03/20 08:00 Pulse 84 02/03/20 08:00 Resp 18 02/03/20 08:00 BP 123/66 02/03/20 08:00 Pulse Ox 95 02/03/20 08:00 02/02/20 02/03/20 02/03/20 22:59 06:59 14:59 Intake Total 13.483 / 13.483 1932.262 / 1945.745 Output Total 1045 / 1045 50 / 1095 300 / 300 Balance -1031.517 / -5371.499 8601.262 / 850.745 -300 / -300 Weight last 48 hrs Weight 96.615 kg Weight 90.718 kg Physical Exam Narrative: EXAM NARRATIVE: Mental Status Exam: The patient is encountered daniella amaya in his bed in the intensive care unit. He is alert and watching TV. He is immediately interpersonally engaged. He is believed to be a reliable informant as information provided was consistent with that in his chart. Appearance: hygiene is fair; no gross neurological deficits. Speech: Speech is of normal rate and rhythm and easily understood. Thought processes: Thought processes are abstract. Judgment is adequate for safety. Psychotic processes: There is no indication of guarding or paranoia. There is no attention to the internal stimuli. Auditory and visual hallucinations are denied. Judgment: Insight is above average. Problem solving skills are adequate for safety. Orientation: The patient is oriented to person, place time and situation. Memory: no deficits noted in immediate, intermediate, or remote spheres. Attention: The patient is alert and interpersonally engaged. Language: Verbalizations are coherent. Fund of knowledge: Fund of knowledge is adequate. Affect/Mood: Affect is sad with a depressed mood. Denied suicidal ideation Affective range is constricted though he has a good sense of humor Psychosis: perception unimpaired except through cognitive distortion; reality testing intact. Data Micro: Micro: Microbiology 02/02/20 22:07 MRSA Culture - Fin al Nose 02/02/20 13:40 Blood Culture - Pr eliminary Blood SPECIMEN [facility] STEPHANIE 02/02/20 13:35 Blood Culture - Pr eliminary Blood SPECIMEN [facility] A&P Assessment and plan (1) Major depression, single episode: Status: Acute Additional A&P Information Plan: The patient is previously tolerated Wellbutrin and found significant benefit with it. We discussed potential benefits and side effects. Contingency plan for unexpected and intolerable side effects is discontinuation. We will initiate Wellbutrin XL 150 mg daily. He was advised to follow-up with his own primary care physician following discharge. Coding Level of Care Code Acute Physician Compensation Analyst for Martine Fwd Diagnoses Major depression, single episode F32.9
[2020-02-03] MEDS: buPROPion XL (24 HR) 150 mg Tablet PO (13:16)
[2020-02-03] MEDS: insulin glargine 100 units/1 mL 20 UNIT SUBCUT (13:16)
[2020-02-03] MEDS: sodium chloride 0.9% 1,000 ML 100 ML IV ×2 (13:16→23:17)
[2020-02-03 13:34] LABS: Anion Gap 10.3 (5-19); Blood Urea Nitrogen 13 mg/dL (8-23); Calcium 9.1 mg/dL (8.5-10.5); Carbon Dioxide 25 mmol/L (22-29); Chloride 105 mmol/L (98-107); Glomerular Filtration Rate 67.2 mL/min (90-130); Glucose 133 mg/dL (65-115); Osmolality Calculated 282 mOsm/kg (285-295); Potassium 3.3 mmol/L (3.5-5.1); Sodium 137 mmol/L (136-145)
--- NOTE | 2020-02-03 14:31 | PM.PN ---
Subjective Subjective: Interval history: No events overnight. Today morning patient's anion gap is 16. Fluid and insulin drip was continued. Repeat BMP 1 PM shows that anion gap has been closed. Insulin drip was stopped and patient was started on diet along with insulin sliding scale and and longstanding insulin. He states he is feeling little better. He is hungry finally. His back pain is little better now. Patient has already been seen by psychiatrist. Vitals/I&O/Wt Last Vital Signs Temp 97.4 F L 02/03/20 12:00 Pulse 76 02/03/20 12:00 Resp 2 L 02/03/20 12:00 BP 113/66 02/03/20 12:00 Pulse Ox 94 02/03/20 09:00 02/02/20 02/03/20 02/03/20 22:59 06:59 14:59 Intake Total 13.483 / 13.483 1932.262 / 1945.745 80 / 80 Output Total 1045 / 1045 50 / 1095 300 / 300 Balance -1031.517 / -9543.077 8223.262 / 850.745 -220 / -220 Weight last 48 hrs Weight 96.615 kg Weight 90.718 kg Physical Exam Narrative: EXAM NARRATIVE: General: No acute distress, AO x3, mildly depressed. More jovial today. HEENT: PERRLA, pupils bilaterally equal and reactive Chest: Normal vesicular breath sounds, no added sounds, equal good air entry bilaterally CVS: S1-S2 regular, no murmurs, no tachycardia, no gallops, no rubs Abdomen: Soft, nontender, no organomegaly, bowel sounds present Neuro: No focal deficits, no facial deformity, AO x3, power 5/5 in all limbs. Back: No focal point of tenderness. Mild tenderness in left paraspinal area Data : 02/03/20 03:35 02/03/20 13:05 Micro: Microbiology 02/02/20 22:07 MRSA Culture - Final Nose 02/02/20 13:40 Blood Culture - Preliminary Blood SPECIMEN COLLECTED 02/02/20 13:35 Blood Culture - Preliminary Blood SPECIMEN COLLECTED A&P Assessment and plan (1) Diabetic ketoacidosis: Status: Acute Qualifiers: Diabetes mellitus complication detail: without coma Diabetes mellitus type: type 1 Qualified Code(s): E10.10 - Type 1 diabetes mellitus with ketoacidosis without coma (2) Mixed hyperlipidemia: Status: Chronic (3) Controlled diabetes mellitus with hyperglycemia, with long-term current use of insulin: Status: Chronic Qualifiers: Diabetes mellitus type: type 2 Qualified Code(s): E11.65 - Type 2 diabetes mellitus with hyperglycemia; Z79.4 - [facility]PC (current) use of insulin (4) Essential (primary) hypertension: Status: Chronic (5) Back pain: Status: Acute (6) Degenerative lumbar spinal stenosis: Status: Acute (7) Major depression, single episode: Status: Acute Additional A&P Information Type of diabetes mellitus/DKA: Anion gap closed. Continue with normal saline 50 cc/h. Start on carb consistent diet. We will start patient on a.m. Lantus 20 units every morning. Insulin sliding scale high-dose before meals and at bedtime. For now would continue holding on oral hypoglycemics. DKA most likely because of sporadic medication use and diet. Patient does not have any signs of infections. HbA1c 12.2. Hypertension: Blood pressure well controlled. Goal blood pressure less than 140/90 mmHg. Continue home dose of lisinopril. Depression: Greatly appreciate Dr. Menard's recommendations. Patient started on Wellbutrin today. Spinal stenosis/back pain: No symptoms concerning for cauda equina. CT lumbar spine results appreciated. Consistent with severe spinal stenosis and osteoporosis. Patient will most likely require outpatient follow-up with neurosurgeon. Continue with physical therapy evaluation and treatment for now. Full code. Carb consistent diet. Lovenox for DVT prophylaxis. Attestations Medical Necessity Statement*: Diabetic ketoacidosis. 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
[2020-02-03 17:52] LABS: Anion Gap 16.2 (5-19); Blood Urea Nitrogen 14 mg/dL (8-23); Calcium 8.8 mg/dL (8.5-10.5); Carbon Dioxide 22 mmol/L (22-29); Chloride 102 mmol/L (98-107); Glucose 311 mg/dL (65-115); Osmolality Calculated 290 mOsm/kg (285-295); Potassium 4.2 mmol/L (3.5-5.1); Sodium 136 mmol/L (136-145)
[2020-02-03 18:36] LABS: Glucose Point of Care 261 mg/dL (70-110)
[2020-02-03 20:23] LABS: Glucose Point of Care 287 mg/dL (70-110)
[2020-02-03] MEDS: enoxaparin 40 mg/0.4 mL Syringe SUBCUT (20:57)
[2020-02-04] VITALS (9 sets, daily range): BP systolic 114–147; BP diastolic 63–86; PULSE 83–93; RESP 14–21; O2SAT 97–99; BMI 25.4
[2020-02-04 04:15] LABS: Basophils # 0.1 10^3/uL (0.0-0.1); Eosinophils # 0.3 10^3/uL (0.0-0.8); Eosinophils % 3.9 %; Hematocrit 37.6 % (42.0-52.0); Hemoglobin 12.9 g/dL (11.7-16.6); Lymphocytes % 28.4 %; Mean Corpuscular HGB Conc 34.3 g/dL (30.0-36.0); Mean Corpuscular Hemoglobin 34.7 pg (28.0-34.0); Mean Corpuscular Volume 101.1 fL (80-94); Mean Platelet Volume 9.6 fL (7.4-10.4); Monocytes # 0.7 10^3/uL (0.2-0.9); Monocytes % 10.5 %; Neutrophils % 56.1 %; Nucleated Red Blood Cells % 0 %; Platelet Count 193 10^3/cmm (130-400); Red Blood Count 3.72 10^6/uL (4.1-5.3); Red Cell Distribution Width 12.2 % (12.1-15.1)
[2020-02-04 04:55] LABS: Alanine Aminotransferase 7 U/L (0-41); Alkaline Phosphatase 70 IU/L (40-130); Anion Gap 11.4 (5-19); Aspartate Amino Transferase 10 U/L (0-40); Blood Urea Nitrogen 11 mg/dL (8-23); Calcium 8.2 mg/dL (8.5-10.5); Carbon Dioxide 24 mmol/L (22-29); Chloride 106 mmol/L (98-107); Globulin 2.1 g/dL (1.3-4.6); Glucose 121 mg/dL (65-115); Osmolality Calculated 283 mOsm/kg (285-295); Potassium 3.4 mmol/L (3.5-5.1); Sodium 138 mmol/L (136-145); Total Bilirubin 0.4 mg/dL (0.15-1.2); Total Protein 5.1 g/dL (6.6-8.7)
[2020-02-04] MEDS: insulin glargine 100 units/1 mL 20 UNIT SUBCUT (06:08)
[2020-02-04 07:43] LABS: Glucose Point of Care 201 mg/dL (70-110)
[2020-02-04] MEDS: lisinopril 20 mg Tablet 40 MG PO (08:42)
[2020-02-04] MEDS: aspirin 81 mg EC Tablet PO (08:43)
[2020-02-04] MEDS: atorvastatin 40 mg Tablet 20 MG PO (08:43)
[2020-02-04] MEDS: metoprolol tartrate 50 mg Tablet PO (08:43)
[2020-02-04] MEDS: buPROPion XL (24 HR) 150 mg Tablet PO (08:43)
[2020-02-04] MEDS: TRAMadol 50 mg Tablet PO (08:48)
[2020-02-04] MEDS: famotidine 20 mg/2 mL INJ IVP (08:50)
--- NOTE | 2020-02-04 09:43 | P.DS_ITS ---
Discharge Providers Date of Admission: 02/02/20 16:51 Date of Discharge: February 04, 2020 Attending Provider at Admission: Brian Hewitt MD Attending Provider at Discharge: Brian Hewitt MD Consults: Psychiatry: Dr. Menard Primary Care Provider: REID Gerardo Diagnoses at Discharge Discharge Diagnosis (1) Diabetic ketoacidosis: Status: Acute Qualifiers: Diabetes mellitus complication detail: without coma Diabetes mellitus type: type 1 Qualified Code(s): E10.10 - Type 1 diabetes mellitus with ketoacidosis without coma (2) Mixed hyperlipidemia: Status: Chronic (3) Controlled diabetes mellitus with hyperglycemia, with long-term current use of insulin: Status: Chronic Qualifiers: Diabetes mellitus type: type 2 Qualified Code(s): E11.65 - Type 2 diabetes mellitus with hyperglycemia; Z79.4 - senior care (current) use of insulin (4) Essential (primary) hypertension: Status: Chronic (5) Back pain: Status: Acute (6) Degenerative lumbar spinal stenosis: Status: Acute (7) Major depression, single episode: Status: Acute Reason for Visit Reason for Visit: multiple complaints Hospital Course Discharge Summary: Varinder Andrew is a 64 year old male with past medical history of hypertension, type 2 diabetes mellitus who presented to the ER with his daughter today with complaining of decreased oral intake for both solids and liquids for last 3 weeks along with 15 pounds weight loss. Patient states he was trying to lift something heavy 3 weeks ago at which time he started having back pain radiating down to left hip with some numbness and tingling in his foot since then he has not been able to eat anything. He denies of having any nausea, vomiting, abdominal pain, diarrhea, odynophagia, dysphagia while eating. On further interviewing patient states he has been extremely depressed for last 6 months since his and when he hurt his back he got more depressed because of which he thinks that he is not been eating much. Back pain does not wake him up at night and he denies of having any headache, dizziness, chest pain, palpitations, bowel or bladder accidents. He does complain of constipation with last bowel movement more than 2 weeks ago. He states he thinks he is passing flatus on and off. His blood work in the ER showed white count of 13.6, hemoglobin of 17.9, MCV of 100.4, neutrophil of 10.4, ABG showing a pH of 7.25, CO2 of 19.3, PO2 of 118, sodium of 130, chloride of 91, anion gap of 33, creatinine of 1.3, lactate of 2.3, negative UA, positive ketones with CT abdomen pelvis which was done showing cholelithiasis without cholecystitis. He denies of having any suicidal or homicidal ideations. He was admitted to the hospital in ICU and started on insulin drip as per DKA protocol. Eventually his anion gap closed and he was transitioned over to subcu insulin and diet. It is believed DKA is most likely because of poor oral intake and recent erratic intake of medication for last [address] abdomen pelvis and lumbar spine were done to rule out any underlying malignancy given loss of 15 pounds in last 3 weeks. He has loss of weight is most likely because of severe depression. He was seen by psychiatry while in hospital and Wellbutrin was started for severe depression. He tolerated treatment well. For his back pain he underwent CT of his lumbar area which showed severe lumbar stenosis for which he was seen by physical therapy and he was prescribed to follow-up with physical therapy as an outpatient. He has been discharged in medically stable condition with advised to make sure that he continues to have regular follow balanced car consistent diet along with making sure that he continues to take his antidiabetic medications. He is advised to follow-up with behavioral health in 1 month for further adjustment of his antidepression medications. Referral has been given to him to follow-up with physical therapist as an outpatient. His care and further plan were discussed both with patient and his daughter. Physical Exam Narrative: EXAM NARRATIVE: General: No acute distress, AO x3, mildly depressed. More jovial today. HEENT: PERRLA, pupils bilaterally equal and reactive Chest: Normal vesicular breath sounds, no added sounds, equal good air entry bilaterally CVS: S1-S2 regular, no murmurs, no tachycardia, no gallops, no rubs Abdomen: Soft, nontender, no organomegaly, bowel sounds present Neuro: No focal deficits, no facial deformity, AO x3, power 5/5 in all limbs. Back: No focal point of tenderness. Mild tenderness in left paraspinal area Discharge Data Data Completed and Pending: Completed Studies During Hospitalization Category Date Time Status CT abdomen pelvis w con* [id number] Urge nt Cat Scan 02/02/20 14:[address] lumbar spine w o con* [id number] Urgen t Cat Scan 02/02/20 17:13 Completed XR abdomen 1V* [id number] Routine Exams 02/03/20 09:09 Completed XR chest 1V lexis ble [id number] Stat Exams 02/02/20 15:07 Completed Pending at discharge Category Date Time Status Blood Culture Sta t Lab 02/02/20 13:40 Results Labs from last 24 hours 02/04/20 02/04/20 02/04/20 07:21 03:42 03:42 WBC 7.0 RBC 3.72 L Hgb 12.9 Hct 37.6 L MCV 101.1 H MCH 34.7 H MCHC 34.3 RDW 12.2 Plt Count 193 MPV 9.6 Neut % (Auto) 56.1 Lymph % (Auto) 28.4 [place] % (Auto) 10.5 Eos % (Auto) 3.9 Baso % (Auto) 1.0 Neut # (Auto) 3.90 Lymph # (Auto) 2.0 [place] # (Auto) 0.7 Eos # (Auto) 0.3 Baso # (Auto) 0.1 Nucleated RBC % (a uto) 0 Nucleated RBCs # 0.0 Sodium 138 Potassium 3.4 L Chloride 106 Carbon Dioxide 24 Anion Gap 11.4 BUN 11 Creatinine 0.8 GFR Calculation 97.0 Glucose 121 H POC Glucose 201 Calculated Osmolal ity 283 L Calcium 8.2 L Total Bilirubin 0.4 AST 10 ALT 7 Alkaline Phosphata se 70 Total Protein 5.1 L Albumin 3.0 L Globulin 2.1 02/03/20 02/03/20 02/03/20 20:21 17:14 16:45 WBC RBC Hgb Hct MCV MCH MCHC RDW Plt Count MPV Neut % (Auto) Lymph % (Auto) [place] % (Auto) Eos % (Auto) Baso % (Auto) Neut # (Auto) Lymph # (Auto) [place] # (Auto) Eos # (Auto) Baso # (Auto) Nucleated RBC % (a uto) Nucleated RBCs # Sodium 136 Potassium 4.2 Chloride 102 Carbon Dioxide 22 Anion Gap 16.2 BUN 14 Creatinine 1.0 GFR Calculation 75.0 L Glucose 311 H POC Glucose 287 261 Calculated Osmolal ity 290 Calcium 8.8 Total Bilirubin AST ALT Alkaline Phosphata se Total Protein Albumin Globulin 02/03/20 02/03/20 02/03/20 13:05 12:04 10:44 WBC RBC Hgb Hct MCV MCH MCHC RDW Plt Count MPV Neut % (Auto) Lymph % (Auto) [place] % (Auto) Eos % (Auto) Baso % (Auto) Neut # (Auto) Lymph # (Auto) [place] # (Auto) Eos # (Auto) Baso # (Auto) Nucleated RBC % (a uto) Nucleated RBCs # Sodium 137 Potassium 3.3 L Chloride 105 Carbon Dioxide 25 Anion Gap 10.3 BUN 13 Creatinine 1.1 GFR Calculation 67.2 L Glucose 133 H POC Glucose 133 241 Calculated Osmolal ity 282 L Calcium 9.1 Total Bilirubin AST ALT Alkaline Phosphata se Total Protein Albumin Globulin 02/03/20 09:19 WBC RBC Hgb Hct MCV MCH MCHC RDW Plt Count MPV Neut % (Auto) Lymph % (Auto) [place] % (Auto) Eos % (Auto) Baso % (Auto) Neut # (Auto) Lymph # (Auto) [place] # (Auto) Eos # (Auto) Baso # (Auto) Nucleated RBC % (a uto) Nucleated RBCs # Sodium 137 Potassium 3.7 Chloride 103 Carbon Dioxide 23 Anion Gap 14.7 BUN 15 Creatinine 1.1 GFR Calculation 67.2 L Glucose 188 H POC Glucose Calculated Osmolal ity 285 Calcium 9.1 Total Bilirubin AST ALT Alkaline Phosphata se Total Protein Albumin Globulin Vitals: Last Vital Signs Temp 98.9 F 02/03/20 18:00 Pulse 93 02/04/20 08:39 Resp 21 H 02/04/20 08:39 BP 142/69 02/04/20 08:00 Pulse Ox 97 02/04/20 08:39 Discharge Plan Discharge Patient Disposition: Home Condition: Stable Prescriptions: New tramadol 50 mg Tablet 50 mg PO Q12H PRN (Reason: Moderate Pain) Qty: 10 RF: 0 bupropion HCl 150 mg Tablet Extended Release 24 Hr 150 mg PO DAILY Qty: 30 RF: 0 Continued aspirin 81 mg tablet,delayed release (DR/EC) 81 mg PO DAILY RF: 0 atorvastatin [Lipitor] 20 mg tablet 20 mg PO DAILY Qty: 30 RF: 2 metoprolol tartrate 50 mg tablet 50 mg PO DAILY Qty: 30 RF: 2 Levemir U-100 Insulin 100 unit/mL solution 20 unit SUBCUT DAILY Qty: 10 RF: 1 (DME) insulin syringe-needle U-100 [CareTouch Insulin Syringe] 1 mL 31 gauge x 5/16 syringe See Rx Instructions .ROUTE .MEDSUPPLY Qty: 100 RF: 5 metformin 500 mg tablet extended release 24 hr 2,000 mg PO DAILY Qty: 120 RF: 1 exenatide 10 mcg/dose(250 mcg/mL) 2.4 mL pen injector 10 mcg SUBCUT BID Qty: 2.4 RF: 1 lisinopril 40 mg tablet 40 mg PO DAILY Qty: 14 RF: 0 Discharge Orders: Discharge Order (Routine); Ordered 02/04/20 Ordered By: Brian Hewitt Other Ambulatory Orders: Physical Therapy Eval and Treat Outpatient (Order) Timeframe: 1 Week Facility: [facility] - Location: Physical Therapy Ordered By: Brian Hewitt Referrals: [facility] PHYSICAL [facility] [Other] - 4-7 days (ONE WEEK FOR FOLLOW UP OUTPATIENT CHECK IN TIME ON 2019 AT 09:30 FOR A 10:00 AM APPOINTMENT PHYSICAL THERAPY CALLED BACK AND [place] PATIENT LIVES IN [facility] .RESCHEDULED FOR 2019 AT 1:30 PM GIVEN NEW APPOINTMENT TIME TO PATIENT. ) BE[facility]AVIORAL HE[facility] PROVIDERS, [Staff Physician] - 2 weeks (PAPERWORK ASSESSMENT HAS BEEN COMPLETED IN ICU AND FAXED TO [facility] , [facility] WILL CALL YOU WITH YOUR PHONE ASSESSMENT FOR TIME OF INTERVIEW . ) John Puckett FNP-C [Primary Care Provider] - 1 month (YOU HAVE AN SCHEDULED APPOINTMENT AT [facility] FOR THE FOLLOWING DATE OF (March AT 10:40 AM )WITH JOHN PUCKETT. ) Discharge Diet: Cardiac and Diabetic Discharge Activity: Resume usual activity, Increase activity as tolerated and As per PT/OT instructions Patient Instructions: Back Pain, Diabetes and Diet, Bupropion (By mouth), Tramadol (By mouth), Depression (DC), Diabetic Ketoacidosis (DC), Basic Carbohydrate Counting (DC), Degenerative Disc Disease (DC) Activity Restrictions/Additional Instructions: Please make sure that you continue to have healthy diet. Please make sure that you continue taking antidiabetic medications every day as prescribed. Please make sure that you follow-up with physical therapy for your back pain. If physical therapy is not helping then you would need to follow-up with neurosurgery. Please follow-up with behavioral health for your depression. Wellbutrin has been added to your medication list. Discharge Date/Time: 02/04/20 11:21 Discharge Attestations Time Spent in Discharge Care*: greater than 30 min Specific Discharge Activities: Specific discharge activities: educating patient, educating and/or supporting family/caregiver, discussing with pcp/other providers, discussing with case filler/social workers/dc planners, documenting/other paperwork and evaluating patient/reviewing data Status at Discharge: Cognitive status at discharge: cognitively intact , Behavioral status at discharge: cooperative , Functional status at discharge: uses cane/walker Overall status at discharge: patient is back to baseline Quality Metrics Clinical Quality Measures During this hospital stay, did patient experience: None Coding Level of Care Code 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
--- NOTE | 2020-02-04 11:15 | PC.NURSE ---
Discharge instructions given to patient, IV removed, went over prescriptions and appointments for [facility] and Physical Therapy. Patient has no further questions.
--- NOTE | 2020-02-04 11:17 | PC.NURSE ---
Patient wheeled to private vehicle by this nurse, daughter, Marilyn, driving. Patient has no complaints or questions, belongings with patient.
== END 2020-02-04 11:21 | disposition home or self-care (01) | DRG 639 ==
LOC: ER 17:31 → ICU 17:41
PROVIDERS: Emergency Medicine; Nurse Practitioner Family; Admitting Provider Student in an Organized Health Care Education/Training Program; PCP Nurse Practitioner; Visit Provider Student in an Organized Health Care Education/Training Program
DX: E10.10 Type 1 diabetes mellitus with ketoacidosis without coma (principal); I10 Essential (primary) hypertension; E10.21 Type 1 diabetes mellitus with diabetic nephropathy; E78.2 Mixed hyperlipidemia; F17.210 Nicotine dependence, cigarettes, uncomplicated; F32.9 Major depressive disorder, single episode, unspecified; M48.061 Spinal stenosis, lumbar region without neurogenic claudication
CPT/HCPCS: 12345; 36415; 36416; 36600; 71045; 72131; 74018; 74177; 80048; 80053; 80061; 81001; 81003; 82009; 82803; 82962; 83036; 83540; 83550; 83605; 83690; 84145; 84443; 84484; 85025; 85651; 86140; 87040; 87641; 93005; 94640; 96372; 96375; 97116; 97140; 97161; 99283; J1650; J1815 ×2; J2270; J2405; J2550; J3480; J3490; J7030; J7050; Q9967

== ENCOUNTER → 2020-02-11 11:29 | Outpatient (BNVA) | payer MEDICARE, SELFPAY | PROVIDERS: PCP Nurse Practitioner; Visit Provider Nurse Practitioner | DX: E11.65 Type 2 diabetes mellitus with hyperglycemia (principal); Z79.4 Long term (current) use of insulin; I10 Essential (primary) hypertension | CPT/HCPCS: 85025 ==

== ENCOUNTER → 2020-02-23 12:50 | Outpatient (BNVA) | payer MEDICARE, SELFPAY | PROVIDERS: PCP Nurse Practitioner; Referring Provider Nurse Practitioner; Visit Provider Internal Medicine | DX: E11.65 Type 2 diabetes mellitus with hyperglycemia (principal); Z79.4 Long term (current) use of insulin; E78.2 Mixed hyperlipidemia; I10 Essential (primary) hypertension | CPT/HCPCS: 99204 ==

== ENCOUNTER → 2020-06-08 14:13 | Outpatient (BNVA) | payer MEDICARE, SELFPAY | PROVIDERS: Visit Provider Internal Medicine | DX: E11.65 Type 2 diabetes mellitus with hyperglycemia (principal); Z79.4 Long term (current) use of insulin; E78.2 Mixed hyperlipidemia; I10 Essential (primary) hypertension | CPT/HCPCS: 36415; 83036; 99214 ==

== ENCOUNTER 2020-06-08 15:13 | Outpatient (CLI) | payer MEDICARE, SELFPAY ==
[2020-06-08 16:45] LABS: Estmated Average Glucose 258; Hemoglobin A1C 10.6 % (4.0-6.0)
== END 2020-06-08 15:14 | disposition home or self-care (01) ==
PROVIDERS: PCP Nurse Practitioner; Visit Provider Internal Medicine
DX: E11.65 Type 2 diabetes mellitus with hyperglycemia (principal); Z79.4 Long term (current) use of insulin
CPT/HCPCS: 36415; 83036

== ENCOUNTER → 2020-06-23 11:56 | Outpatient (BNVA) | payer MEDICARE, SELFPAY | PROVIDERS: PCP Nurse Practitioner; Visit Provider Nurse Practitioner | DX: E78.2 Mixed hyperlipidemia (principal); F32.9 Major depressive disorder, single episode, unspecified; I10 Essential (primary) hypertension | CPT/HCPCS: 80053; 80061 ==

== ENCOUNTER 2020-08-22 12:10 | Outpatient (CLI) | payer MEDICARE, SELFPAY ==
[2020-08-22 16:18] LABS: Estmated Average Glucose 263; Hemoglobin A1C 10.8 % (4.0-6.0)
== END 2020-08-22 12:11 | disposition home or self-care (01) ==
PROVIDERS: PCP Nurse Practitioner; Visit Provider Internal Medicine
DX: E10.49 Type 1 diabetes mellitus with other diabetic neurological complication (principal); E10.10 Type 1 diabetes mellitus with ketoacidosis without coma; Z79.4 Long term (current) use of insulin
CPT/HCPCS: 36415; 83036

== ENCOUNTER → 2020-09-01 14:24 | Outpatient (BNVA) | payer MEDICARE, SELFPAY | PROVIDERS: PCP Nurse Practitioner; Visit Provider Internal Medicine | DX: E11.65 Type 2 diabetes mellitus with hyperglycemia (principal); Z79.4 Long term (current) use of insulin; E78.2 Mixed hyperlipidemia; I10 Essential (primary) hypertension | CPT/HCPCS: 99214 ==

== ENCOUNTER → 2021-02-13 13:22 | Outpatient (BNVA) | payer MEDICARE, SELFPAY | PROVIDERS: PCP Nurse Practitioner; Visit Provider Nurse Practitioner | DX: E11.65 Type 2 diabetes mellitus with hyperglycemia (principal); I10 Essential (primary) hypertension; F32.1 Major depressive disorder, single episode, moderate; E78.2 Mixed hyperlipidemia | CPT/HCPCS: 80053; 80061; 81000; 83036; 85025 ==

== ENCOUNTER → 2021-02-23 14:37 | Outpatient (BNVA) | payer MEDICARE, SELFPAY | PROVIDERS: PCP Nurse Practitioner; Visit Provider Internal Medicine | DX: E11.10 Type 2 diabetes mellitus with ketoacidosis without coma (principal); E11.65 Type 2 diabetes mellitus with hyperglycemia; E78.2 Mixed hyperlipidemia; N18.31 Chronic kidney disease, stage 3a; Z79.4 Long term (current) use of insulin | CPT/HCPCS: 83519; 83525; 86337; 99214 ==

== ENCOUNTER → 2021-04-18 12:40 | Outpatient (BNVA) | payer MEDICARE, SELFPAY | PROVIDERS: PCP Nurse Practitioner; Visit Provider Internal Medicine | DX: E11.65 Type 2 diabetes mellitus with hyperglycemia (principal); E11.10 Type 2 diabetes mellitus with ketoacidosis without coma; I10 Essential (primary) hypertension; E78.2 Mixed hyperlipidemia; Z79.4 Long term (current) use of insulin | CPT/HCPCS: 99214 ==

== ENCOUNTER 2021-05-23 09:20 | Outpatient (CLI) | payer MEDICARE, SELFPAY ==
[2021-05-23 10:12] LABS: Estmated Average Glucose 280; Hemoglobin A1C 11.4 % (4.0-6.0)
== END 2021-05-23 09:21 | disposition home or self-care (01) ==
PROVIDERS: PCP Nurse Practitioner; Visit Provider Internal Medicine
DX: E10.10 Type 1 diabetes mellitus with ketoacidosis without coma (principal)
CPT/HCPCS: 36415; 83036; 83519; 83525; 86337

== ENCOUNTER → 2021-06-01 12:52 | Outpatient (BNVA) | payer MEDICARE, SELFPAY | PROVIDERS: PCP Nurse Practitioner; Visit Provider Internal Medicine | DX: E11.65 Type 2 diabetes mellitus with hyperglycemia (principal); E11.10 Type 2 diabetes mellitus with ketoacidosis without coma; I10 Essential (primary) hypertension; E78.2 Mixed hyperlipidemia; Z79.4 Long term (current) use of insulin; Z79.84 Long term (current) use of oral hypoglycemic drugs; F17.200 Nicotine dependence, unspecified, uncomplicated | CPT/HCPCS: 99214 ==

== ENCOUNTER → 2021-07-03 10:03 | Outpatient (BNVA) | payer MEDICARE, SELFPAY | PROVIDERS: PCP Nurse Practitioner; Visit Provider Internal Medicine | DX: E11.65 Type 2 diabetes mellitus with hyperglycemia (principal); E11.10 Type 2 diabetes mellitus with ketoacidosis without coma; E78.2 Mixed hyperlipidemia; Z79.4 Long term (current) use of insulin; F17.210 Nicotine dependence, cigarettes, uncomplicated | CPT/HCPCS: 99214 ==

== ENCOUNTER → 2021-08-29 10:52 | Outpatient (BNVA) | payer MEDICARE, SELFPAY | PROVIDERS: PCP Nurse Practitioner; Visit Provider Internal Medicine | DX: E11.65 Type 2 diabetes mellitus with hyperglycemia (principal); E11.10 Type 2 diabetes mellitus with ketoacidosis without coma; E78.2 Mixed hyperlipidemia; F17.200 Nicotine dependence, unspecified, uncomplicated; Z79.4 Long term (current) use of insulin; Z79.84 Long term (current) use of oral hypoglycemic drugs | CPT/HCPCS: 99214 ==

== ENCOUNTER → 2021-09-05 15:04 | Outpatient (BNVA) | payer MEDICARE, SELFPAY | PROVIDERS: PCP Nurse Practitioner; Visit Provider Nurse Practitioner | DX: I10 Essential (primary) hypertension (principal) | CPT/HCPCS: 80053; 80061; 83721; 84443; 85025 ==

== ENCOUNTER → 2021-11-27 10:59 | Outpatient (BNVA) | payer MEDICARE, SELFPAY | PROVIDERS: PCP Nurse Practitioner; Visit Provider Internal Medicine | DX: E13.65 Other specified diabetes mellitus with hyperglycemia (principal); E78.2 Mixed hyperlipidemia; Z79.4 Long term (current) use of insulin; Z79.84 Long term (current) use of oral hypoglycemic drugs; F17.210 Nicotine dependence, cigarettes, uncomplicated | CPT/HCPCS: 82044; 83036; 99214 ==

== ENCOUNTER 2021-11-29 11:19 | Outpatient (CLI) | payer MEDICARE, SELFPAY ==
[2021-11-29 12:40] LABS: Alanine Aminotransferase 12 U/L (0-41); Albumin Level 4.2 g/dL (3.5-5.2); Alkaline Phosphatase 92 IU/L (40-130); Anion Gap 12.6 (5-19); Aspartate Amino Transferase 18 U/L (0-40); Blood Urea Nitrogen 14 mg/dL (8-23); Calcium 8.4 mg/dL (8.5-10.5); Carbon Dioxide 27 mmol/L (22-29); Chloride 100 mmol/L (98-107); Chol HDL Ratio 3.78 mg/dL (1.0-5.00); Cholesterol 151 mg/dL (0-200); Glomerular Filtration Rate 74.5 mL/min (90-130); Glucose 202 mg/dL (65-115); HDL Cholesterol 40 mg/dL (60-100); LDL Cholesterol Calculated 88 mg/dL (50-129); Osmolality Calculated 286 mOsm/kg (285-295); Potassium 4.6 mmol/L (3.5-5.1); Sodium 135 mmol/L (136-145); Total Bilirubin 0.7 mg/dL (0.15-1.2); Total Protein 7.2 g/dL (6.6-8.7); Triglycerides 116 mg/dL (0-150)
== END 2021-11-29 11:20 | disposition home or self-care (01) ==
LOC: LAB 11:22
PROVIDERS: PCP Nurse Practitioner; Visit Provider Internal Medicine
DX: E11.65 Type 2 diabetes mellitus with hyperglycemia (principal); Z79.4 Long term (current) use of insulin; E78.2 Mixed hyperlipidemia
CPT/HCPCS: 36415; 80053; 80061; 83036; 86337; 86341

== ENCOUNTER 2022-02-19 12:48 | Outpatient (CLI) | payer MEDICARE, SELFPAY ==
[2022-02-19 13:40] LABS: Estmated Average Glucose 180; Hemoglobin A1C 7.9 % (4.0-6.0)
== END 2022-02-19 12:49 | disposition home or self-care (01) ==
LOC: LAB 12:51
PROVIDERS: PCP Nurse Practitioner; Visit Provider Internal Medicine
DX: Z01.89 Encounter for other specified special examinations (principal)
CPT/HCPCS: 36415; 83036; 86337; 86341

== ENCOUNTER → 2022-02-27 10:48 | Outpatient (BNVA) | payer MEDICARE, SELFPAY | PROVIDERS: PCP Nurse Practitioner; Visit Provider Internal Medicine | DX: E13.65 Other specified diabetes mellitus with hyperglycemia (principal); E78.2 Mixed hyperlipidemia; F17.200 Nicotine dependence, unspecified, uncomplicated; Z79.84 Long term (current) use of oral hypoglycemic drugs; Z79.4 Long term (current) use of insulin | CPT/HCPCS: 99214 ==

== ENCOUNTER → 2022-03-30 08:53 | Outpatient (BNVA) | payer MEDICARE, SELFPAY | PROVIDERS: PCP Nurse Practitioner; Visit Provider Otolaryngology | DX: H91.93 Unspecified hearing loss, bilateral (principal); H93.19 Tinnitus, unspecified ear; E13.65 Other specified diabetes mellitus with hyperglycemia; F17.210 Nicotine dependence, cigarettes, uncomplicated; E66.01 Morbid (severe) obesity due to excess calories; Z68.33 Body mass index [BMI] 33.0-33.9, adult; Z79.4 Long term (current) use of insulin; Z79.84 Long term (current) use of oral hypoglycemic drugs | CPT/HCPCS: 99203 ==

== ENCOUNTER → 2022-04-02 12:09 | Outpatient (BNVA) | payer MEDICARE, SELFPAY | PROVIDERS: PCP Nurse Practitioner; Visit Provider Nurse Practitioner | DX: E11.65 Type 2 diabetes mellitus with hyperglycemia (principal); E78.2 Mixed hyperlipidemia; F32.1 Major depressive disorder, single episode, moderate; I10 Essential (primary) hypertension; Z28.21 Immunization not carried out because of patient refusal | CPT/HCPCS: 81000 ==

== ENCOUNTER → 2022-04-23 10:18 | Outpatient (BNVA) | payer MEDICARE, SELFPAY | PROVIDERS: PCP Nurse Practitioner; Visit Provider Otolaryngology | DX: H90.3 Sensorineural hearing loss, bilateral (principal); F17.200 Nicotine dependence, unspecified, uncomplicated | CPT/HCPCS: 99213 ==

== ENCOUNTER → 2022-05-29 10:39 | Outpatient (BNVA) | payer MEDICARE, SELFPAY | PROVIDERS: PCP Nurse Practitioner; Visit Provider Internal Medicine | DX: E13.65 Other specified diabetes mellitus with hyperglycemia (principal); E78.2 Mixed hyperlipidemia; Z79.4 Long term (current) use of insulin; Z79.84 Long term (current) use of oral hypoglycemic drugs | CPT/HCPCS: 99214 ==

== ENCOUNTER → 2022-06-18 12:18 | Outpatient (BNVA) | payer MEDICARE, SELFPAY | PROVIDERS: PCP Nurse Practitioner; Visit Provider Nurse Practitioner | DX: E78.2 Mixed hyperlipidemia (principal); F32.1 Major depressive disorder, single episode, moderate; I10 Essential (primary) hypertension; E13.65 Other specified diabetes mellitus with hyperglycemia | CPT/HCPCS: 80053; 80061 ==

== ENCOUNTER 2022-08-22 10:24 | Outpatient (CLI) | payer MEDICARE, SELFPAY ==
[2022-08-22 12:17] LABS: Creatinine Urine, Random 60 mg/dL (39-259); Microalbum Creatinine Ratio Ur 500 mg/dL (0-20); Microalbumin Random Urine 30 ug/dL (0-20)
[2022-08-22 12:23] LABS: Alanine Aminotransferase 16 U/L (0-41); Albumin Level 4.2 g/dL (3.5-5.2); Alkaline Phosphatase 93 U/L (40-130); Anion Gap 14.2 (5-19); Aspartate Amino Transferase 16 U/L (0-40); Blood Urea Nitrogen 11 mg/dL (8-23); Calcium 8.7 mg/dL (8.5-10.5); Carbon Dioxide 26 mmol/L (22-29); Chloride 99 mmol/L (98-107); Chol HDL Ratio 2.89 mg/dL (1.0-5.00); Cholesterol 107 mg/dL (0-200); Globulin 2.7 g/dL (1.3-4.6); Glomerular Filtration Rate 74.5 mL/min (90-130); Glucose 181 mg/dL (65-115); HDL Cholesterol 37 mg/dL (60-100); LDL Cholesterol Calculated 49 mg/dL (50-129); LDL HDL Ratio 1.32 RATIO (0.00-3.22); Osmolality Calculated 284 mOsm/kg (285-295); Potassium 4.2 mmol/L (3.5-5.1); Sodium 135 mmol/L (136-145); Total Bilirubin 0.6 mg/dL (0.15-1.2); Total Protein 6.9 g/dL (6.6-8.7); Triglycerides 106 mg/dL (0-150)
[2022-08-22 12:41] LABS: Estmated Average Glucose 189; Hemoglobin A1C 8.2 % (4.0-6.0)
== END 2022-08-22 10:25 | disposition home or self-care (01) ==
LOC: LAB 10:27
PROVIDERS: PCP Nurse Practitioner; Visit Provider Internal Medicine
DX: E11.65 Type 2 diabetes mellitus with hyperglycemia (principal); E78.2 Mixed hyperlipidemia
CPT/HCPCS: 80053; 80061; 82044; 83036

== ENCOUNTER → 2022-08-28 10:59 | Outpatient (BNVA) | payer MEDICARE, SELFPAY | PROVIDERS: PCP Nurse Practitioner; Visit Provider Internal Medicine | DX: E13.65 Other specified diabetes mellitus with hyperglycemia (principal); E78.2 Mixed hyperlipidemia; Z79.4 Long term (current) use of insulin; Z79.84 Long term (current) use of oral hypoglycemic drugs | CPT/HCPCS: 99214 ==

== ENCOUNTER 2022-11-19 14:16 | Emergency (ER) | payer MEDICARE, SELFPAY ==
[2022-11-19] VITALS (24 sets, daily range): BP systolic 113–152; BP diastolic 67–81; PULSE 63–79; RESP 12–29; TEMP 36.4; O2SAT 95–98; BMI 33.9
--- NOTE | 2022-11-19 15:19 | W.ED.WEAKNES ---
HPI - Weakness General: Chief complaint: Weakness Stated complaint: Jordan Puckett sent for low blood pressure Time Seen by Provider: 11/19/22 15:19 History of Present Illness: Mr. Andrew is a 67-year-old gentleman with history of hypertension, hyperlipidemia, diabetes presenting to the emergency department for generalized unwell feeling. He notes onset of symptoms subacute without known specific provoking event approximately 3 days ago. He notes feeling changes in his blood sugars as well as changes in his blood pressure. He has had lightheaded unsteady feeling associated with basically any exertion. Denies focality. Intensity is moderate to severe. Course has persisted. No other specific changes in health, exacerbating, or alleviating factors identified. Onset (ago): day(s) Duration: intermittent Location: generalized Severity: moderate Quality: other Relieving factors: none Exacerbating factors: movement and exertion Associated symptoms: Reports confusion; Denies fever(s), headache(s) or syncope Review of Systems General: Reports: 10 or more systems reviewed and unremarkable except in HPI and below Const: Denies: fever(s) Card: Denies: syncope Neuro: Reports: confusion; Denies: headache(s) PFS ED PFSH: Medical History Degenerative lumbar spinal stenosis Diabetic neuropathy Essential (primary) hypertension Mixed hyperlipidemia Personal history of nicotine dependence Surgical History No history of previous surgery Family History Other Diabetes Heart disease Social History Smoking and tobacco status: current every day smoker Second hand smoke exposure: Yes Smoking risk assessment/counseling performed?: Yes Alcohol intake: former Substance/Drug Use: never Desire information about substance/drug rehabilitation?: No Counseling given: No Caregiver/support person: No Lives independently: Yes Household members: none Housing: House Marital status: service: No Current occupational status: employed Current occupational exposures/hazards: No Do you think of yourself as: Straight/Heterosexual Current gender identity: Male Physical Exam Const: COMMON NORMALS: patient oriented x3 and alert GENERAL APPEARANCE: cooperative and well developed HENMT: COMMON NORMALS: normocephalic and atraumatic HEAD & SCALP: normocephalic and atraumatic THROAT: posterior oropharynx normal Eye: COMMON NORMALS: conjunctivae normal CONJUNCTIVA: Yes conjunctivae normal SCLERA: sclerae normal Neck/C-Spine: COMMON NORMALS: supple GENERAL: Yes trachea midline Resp: COMMON NORMALS: clear to auscultation bilaterally EFFORT & INSPECTION: Yes able to speak in complete sentences AUSCULTATION: clear to auscultation bilaterally Cardio: COMMON NORMALS: regular rate and regular rhythm RATE: regular rate RHYTHM: regular rhythm GI: COMMON NORMALS: Soft to palpation PALPATION: Yes Soft to palpation and No Tenderness to palpation present (GI) Extremity: GENERAL: Yes normal exam except as noted and No edema Neuro: COMMON NORMALS: patient oriented x3, CN's II-XII intact bilaterally, moves all extremities, no focal motor deficits and no sensory deficits noted SENSORIUM/ORIENTATION: Yes alert and No Orientation impaired Psych: COMMON NORMALS: mental status grossly normal and Normal thought process present THOUGHT PROCESS: Normal thought process present Course Vital Signs: Vital signs: Vital Signs Temperature 97.6 F 11/19/22 14:20 Pulse Rate 77 11/19/22 20:13 Respiratory Rate 16 11/19/22 20:13 Blood Pressure 113/76 11/19/22 20:13 Pulse Oximetry 98 11/19/22 20:13 Oxygen Delivery Me thod Room Air 11/19/22 18:25 MDM - Weakness Medical Decision Making 67-year-old gentleman presenting with generalized illness. Patient is nontoxic and there is no focal neurologic deficits. EKG demonstrates sinus rhythm with nonspecific ST segment abnormalities, normal axis and intervals, no STEMI. Labs with minimal leukocytosis, normal hemoglobin and platelet count. Metabolic panel with perhaps mild evidence of dehydration. Negative range 2-hour delta troponin. No UTI. Chest x-ray with no lobar consolidation or pneumothorax. CT with no acute abnormality identified. Patient treated with IV fluids and feels mildly improved. Exact etiology of symptoms are unclear however does not appear to need inpatient management at this time. The results of ED evaluation were discussed with the patient including prescriptions and/or symptomatic cares (if applicable) including appropriate and responsible use, followup plan, and return precautions. The patient verbalized understanding and felt safe for discharge. Medical Records I reviewed the patient's medical records. Lab Data I reviewed the patient's lab results. 11/19/22 15:18 11/19/22 15:18 Radiology Impressions Chest X-Ray 11/19/22 15:25 IMPRESSION: Unremarkable frontal portable chest x-ray. Head CT 11/19/22 15:25 IMPRESSION: No mass effect, layering hemhorrage or hydocephalus is demostrated. No acute intracranial changes are appreciated. Laboratory Results WBC 10.5 10^3/uL (4.0-10.0) H 11/19/22 15:18 RBC 4.06 10^6/uL (4.1-5.3) L 11/19/22 15:18 Hgb 13.2 g/dL (11.7-16.6) 11/19/22 15:18 Hct 39.9 % (42.0-52.0) L 11/19/22 15:18 MCV 98.3 fl (80-94) H 11/19/22 15:18 MCH 32.5 pg (28.0-34.0) 11/19/22 15:18 MCHC 33.1 g/dL (30.0-36.0) 11/19/22 15:18 RDW 12.6 % (12.1-15.1) 11/19/22 15:18 Plt Count 286 10^3/cmm (130-400) 11/19/22 15:18 MPV 9.2 fL (7.4-10.4) 11/19/22 15:18 Neut % (Auto) 67.3 % 11/19/22 15:18 Lymph % (Auto) 18.5 % 11/19/22 15:18 Fajardo % (Auto) 9.3 % 11/19/22 15:18 Eos % (Auto) 3.8 % 11/19/22 15:18 Baso % (Auto) 0.9 % 11/19/22 15:18 Neut # (Auto) 7.06 10^3/uL (1.8-7.7) 11/19/22 15:18 Lymph # (Auto) 1.9 10^3/uL (0.8-4.8) 11/19/22 15:18 Fajardo # (Auto) 1.0 10^3/uL (0.2-0.9) H 11/19/22 15:18 Eos # (Auto) 0.4 10^3/uL (0.0-0.8) 11/19/22 15:18 Baso # (Auto) 0.1 10^3/uL (0.0-0.1) 11/19/22 15:18 Nucleated RBC % (auto) 0 % 11/19/22 15:18 Nucleated RBCs # 0.0 /100WBC 11/19/22 15:18 Sodium 138 mmol/L (136-145) 11/19/22 15:18 Potassium 4.0 mmol/L (3.5-5.1) 11/19/22 15:18 Chloride 101 mmol/L (98-107) 11/19/22 15:18 Carbon Dioxide 27 mmol/L (22-29) 11/19/22 15:18 Anion Gap 14.0 (5-19) 11/19/22 15:18 BUN 16 mg/dL (8-23) 11/19/22 15:18 Creatinine 1.3 mg/dL (0.7-1.2) H 11/19/22 15:18 GFR Calculation 54.9 mL/min (90-130) L 11/19/22 15:18 Glucose 79 mg/dL (65-115) 11/19/22 15:18 Calculated Osmolality 286 mOsm/kg (285-295) 11/19/22 15:18 Calcium 9.0 mg/dL (8.5-10.5) 11/19/22 15:18 Total Bilirubin 0.5 mg/dL (0.15-1.2) 11/19/22 15:18 AST 16 U/L (0-40) 11/19/22 15:18 ALT 18 U/L (0-41) 11/19/22 15:18 Alkaline Phosphatase 86 U/L (40-130) 11/19/22 15:18 Troponin T Baseline 24 ng/L (0-15) H 11/19/22 15:18 Troponin T 120 Minute 19.55 ng/L (0-15) H 11/19/22 17:04 Delta Troponin T -4.45 ABS# (0-10) L 11/19/22 17:04 Total Protein 6.8 g/dL (6.6-8.7) 11/19/22 15:18 Albumin 4.2 g/dL (3.5-5.2) 11/19/22 15:18 Globulin 2.6 g/dL (1.3-4.6) 11/19/22 15:18 TSH 0.99 uIU/mL (0.27-4.20) 11/19/22 15:18 Urine Color Yellow (Yellow) 11/19/22 16:03 Urine Appearance Clear (CLEAR) 11/19/22 16:03 Urine pH 5 (5-7) 11/19/22 16:03 Ur Specific Hydes 1.020 (1.005-1.030) 11/19/22 16:03 Urine Protein 1+ (Negative) H 11/19/22 16:03 Urine Glucose (UA) Norm (Normal) 11/19/22 16:03 Urine Ketones 1+ (Negative) H 11/19/22 16:03 Urine Blood Neg (Negative) 11/19/22 16:03 Urine Nitrate Negative (Negative) 11/19/22 16:03 Urine Bilirubin Neg (Negative) 11/19/22 16:03 Urine Urobilinogen 1 mg/dL (Negative) H 11/19/22 16:03 Ur Leukocyte Esterase Negative (Negative) 11/19/22 16:03 Urine RBC 0-4 /hpf (0-2) H 11/19/22 16:03 Urine WBC 0-4 /hpf (0-5) H 11/19/22 16:03 Ur Squamous Epith Cells 0-4 /hpf (0-5) H 11/19/22 16:03 Amorphous Sediment Not Reportable 11/19/22 16:03 Urine Bacteria Not Reportable 11/19/22 16:03 Hyaline Casts 10-15 /lpf H 11/19/22 16:03 Urine Mucus 4+ /hpf 11/19/22 16:03 Discharge Plan Discharge Patient Disposition: Home Clinical Impression: Light headedness, Weakness Condition: Stable Prescriptions: No Action aspirin 81 mg tablet,delayed release (DR/EC) 81 mg PO DAILY (DME) Dexcom G6 Screener Perfumer Misc See Rx Instructions .Route Qty: 1 0RF Rx Instructions: Check your blood sugar 3-4 times a day for hyperglycemia (DME) Dexcom G6 Sensor Device See Rx Instructions .Route Qty: 3 3RF Rx Instructions: As directed (DME) Dexcom G6 Transmitter Device See Rx Instructions .Route Qty: 1 0RF Rx Instructions: As directed Levemir FlexTouch U-100 Insuln 100 unit/mL (3 mL) insulin pen 55 unit SUBCUT DAILY Qty: 30 3RF Rx Instructions: Administer 55 units subcut daily. insulin aspart U-100 [Novolog FlexPen U-100 Insulin] 100 unit/mL (3 mL) insulin pen 20 unit SUBCUT TID Qty: 60 3RF Rx Instructions: Inject 20 units subcut three times a day 15 minutes before meals. amlodipine [Norvasc] 10 mg tablet 10 mg PO DAILY Qty: 90 0RF atorvastatin [Lipitor] 20 mg tablet 20 mg PO DAILY Qty: 90 0RF bupropion HCl 150 mg tablet extended release 24 hr 150 mg PO DAILY Qty: 90 0RF escitalopram oxalate [Lexapro] 10 mg tablet 10 mg PO DAILY Qty: 90 0RF hydrochlorothiazide 12.5 mg tablet 12.5 mg PO QAM Qty: 90 0RF lisinopril 40 mg tablet 40 mg PO DAILY Qty: 90 0RF metoprolol tartrate 50 mg tablet 50 mg PO DAILY Qty: 90 0RF hydralazine 25 mg tablet 25 mg PO Q12H Qty: 180 0RF Ozempic 1 mg/dose (4 mg/3 mL) pen injector 1 mg SUBCUT Q7D Qty: 3 0RF Ozempic 1 mg/dose (4 mg/3 mL) pen injector 2 mg SUBCUT Q7D Qty: 6 1RF Glucagon Emergency Kit (human) 1 mg recon soln 1 mg SUBCUT Q20M PRN (Reason: hypoglycemia) Qty: 1 2RF Rx Instructions: until target blood sugar attained (DME) insulin syringe-needle U-100 [CareTouch Insulin Syringe] 1 mL 31 gauge x 5/16 syringe See Rx Instructions .ROUTE .MEDSUPPLY Qty: 100 5RF Rx Instructions: 4 shot daily Victoza 3-Emanuel 0.6 mg/0.1 mL (18 mg/3 mL) pen injector See Rx Instructions SUBCUT .COMPLEX Qty: 9 1RF Rx Instructions: inject 0.6mg subcutaneously once daily x 7 days; then 1.2mg daily, not to exceed 1.8mg/day SUBCUT (DME) pen needle, diabetic 33 gauge x 5/32 needle See Rx Instructions .ROUTE .MEDSUPPLY Qty: 100 5RF Rx Instructions: 1 time day metformin 500 mg tablet extended release 24 hr 500 mg PO BID Qty: 180 3RF Rx Instructions: Take one tablet by mouth twice a day. Discharge Orders: Discharge ED (Routine); Ordered 11/19/22 Ordered By: Steve Meeks Referrals: Andrei Puckett FNP-C [Primary Care Provider] - Discharge Diet: Usual diet Discharge Activity: Resume usual activity Patient Instructions: Weakness (ED), Lightheadedness (ED) Activity Restrictions/Additional Instructions: Thank you for visiting the emergency department. You were seen and evaluated for weakness and lightheadedness. The exact cause of your symptoms is unclear. Please follow-up with your primary care provider. Return to the emergency department for worsening symptoms, any new neurologic symptoms, or anything else that you are concerned about and feel needs emergency department evaluation. Coding Level of Care Code ED Boilermaker Apprentice for Martine Stout
[2022-11-19 15:25] LABS: Basophils # 0.1 10^3/uL (0.0-0.1); Basophils % 0.9 %; Eosinophils # 0.4 10^3/uL (0.0-0.8); Eosinophils % 3.8 %; Hematocrit 39.9 % (42.0-52.0); Hemoglobin 13.2 g/dL (11.7-16.6); Lymphocytes # 1.9 10^3/uL (0.8-4.8); Lymphocytes % 18.5 %; Mean Corpuscular HGB Conc 33.1 g/dL (30.0-36.0); Mean Corpuscular Hemoglobin 32.5 pg (28.0-34.0); Mean Corpuscular Volume 98.3 fl (80-94); Mean Platelet Volume 9.2 fL (7.4-10.4); Monocytes % 9.3 %; Neutrophils # 7.06 10^3/uL (1.8-7.7); Neutrophils % 67.3 %; Nucleated Red Blood Cells % 0 %; Platelet Count 286 10^3/cmm (130-400); Red Blood Count 4.06 10^6/uL (4.1-5.3); Red Cell Distribution Width 12.6 % (12.1-15.1); White Blood Count 10.5 10^3/uL (4.0-10.0)
--- NOTE | 2022-11-19 15:25 | CTR_ITS ---
PROCEDURE INFORMATION: Exam: CT Head Without Contrast Exam date and time: 11/19/2022 3:29 PM Age: 67 years old Clinical indication: Altered mental status/memory loss; Confusion or disorientation; Additional info: Confusion, unstead.No history of trauma or recent surgery is provided. TECHNIQUE: Imaging protocol: Computed tomography of the head without contrast. 296image(s) are provided. Radiation optimization: All CT scans at this facility use at least one of these dose optimization techniques: automated exposure control; mA and/or kV adjustment per patient size (includes targeted exams where dose is matched to clinical indication); or iterative reconstruction. Other technique: Axial images are available with sagittal and coronal reconstruction views. Automated dose exposure control is utilized. The DLP is 1296.68. REPORTING DATA: Count of CT and Cardiac NM exams in prior 12 months: This patient has received 0 known CTs and 0 known cardiac nuclear medicine studies in the 12 months prior to the current study. COMPARISON: No relevant prior CT head or MRI studies available. RADIATION DOSE METRICS: Total DLP (mGy-cm): 1296.68 FINDINGS: Brain: Scattered dural chronic calcifications are appreciated. There are moderate cerebral atrophic changes overall.There are chronic periventricular white matter changes present.There are central lacunar changes demonstrated.No mass effect or layering hemorrhage is appreciated. Mendoza, white matter differentiation appears maintained. Cerebral ventricles: No hydrocephalus is appreciated. Pituitary gland and sella: Partially empty sella variant is demonstrated. Paranasal sinuses: Paranasal sinuses appear well-aerated overall. Mastoid air cells: The mastoid air cells appear well-aerated overall. Orbital cavities: Symmetric appearance of the orbital soft tissues is demonstrated. Oral cavity: The mouth may be open as the mandibular condyles overlie the articular eminence right slightly more so than left. Bones/joints: Osseous alignment is maintained.No displaced fracture or dislocation is appreciated. Soft tissues: No radiopaque foreign body or subcutaneous emphysema is appreciated. Vasculature: Atherosclerotic vascular changes are demonstrated. Other findings: There is some motion artifact present. CT/CT head wo con* [id number] IMPRESSION: No mass effect, layering hemhorrage or hydocephalus is demostrated. No acute intracranial changes are appreciated.
--- NOTE | 2022-11-19 15:25 | XR_ITS ---
WS: [id number] EXAMINATION: XR chest 1V portable [id number] REASON FOR EXAM: blood pressure problems, unwell feeling COMPARISON: None available. ORDER DATE: 11/19/2022 3:28 PM TECHNIQUE: A single, portable frontal chest x-ray was obtained. X-RAY FINDINGS: The lungs are clear. Pleural spaces are clear. No pleural effusions or pneumothorax. Cardiomediastinal silhouette is normal. No evidence for pulmonary edema. Soft tissue and osseous structures are unremarkable. No tubes or lines are present. XR/XR chest 1V portable [id number] IMPRESSION: Unremarkable frontal portable chest x-ray.
--- NOTE | 2022-11-19 15:25 | ECG_ITS ---
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 Measurements Intervals [place] Rate: 69 P: 55 [place]: 204 QRS: 18 QRSD: 105 T: 54 QT: 387 QTc: 417 Interpretive Statements SINUS RHYTHM No previous ECG available for comparison Electronically Signed On 11-19-2022 17:23:36 CDT by Jared Lozano M.D. [id number]
[2022-11-19 15:49] LABS: Alanine Aminotransferase 18 U/L (0-41); Albumin Level 4.2 g/dL (3.5-5.2); Alkaline Phosphatase 86 U/L (40-130); Aspartate Amino Transferase 16 U/L (0-40); Blood Urea Nitrogen 16 mg/dL (8-23); Carbon Dioxide 27 mmol/L (22-29); Chloride 101 mmol/L (98-107); Globulin 2.6 g/dL (1.3-4.6); Glomerular Filtration Rate 54.9 mL/min (90-130); Glucose 79 mg/dL (65-115); Osmolality Calculated 286 mOsm/kg (285-295); Sodium 138 mmol/L (136-145); Total Bilirubin 0.5 mg/dL (0.15-1.2); Total Protein 6.8 g/dL (6.6-8.7)
[2022-11-19 15:58] LABS: Thyroid Stimulating Hormone 0.99 uIU/mL (0.27-4.20)
[2022-11-19 16:02] LABS: Troponin(5th) Baseline 24 ng/L (0-15)
[2022-11-19 16:27] LABS: Urine Appearance Clear (CLEAR); Urine Color Yellow (Yellow)
[2022-11-19 16:28] LABS: Add Urine Culture? No; Add Urine Microscopic? YES; Bilirubin Urine Neg (Negative); Blood Urine Neg (Negative); Glucose Urine UA Norm (Normal); Ketones Urine 1+ (Negative); Leukocyte Esterase Urine Negative (Negative); Mucus Urine 4+ /hpf; Nitrate Urine Negative (Negative); Protein Urine 1+ (Negative); RBC Urine 0-4 /hpf (0-2); Squamous Epithelial Cell Urine 0-4 /hpf (0-5); Urobilinogen Urine 1 mg/dL (Negative); WBC Urine 0-4 /hpf (0-5); pH Urine 5 (5-7)
--- NOTE | 2022-11-19 16:56 | ECG_ITS ---
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 Measurements Intervals [place] Rate: 76 P: 54 [place]: 177 QRS: 57 QRSD: 95 T: 38 QT: 398 QTc: 450 Interpretive Statements SINUS RHYTHM POSSIBLE RIGHT VENTRICULAR CONDUCTION DELAY [RSR (QR) IN V1/V2] Compared to ECG 11/19/2022 15:41:05 No significant changes Electronically Signed On 11-19-2022 17:25:24 CDT by Jared Lozano M.D. [id number]
[2022-11-19 17:36] LABS: Troponin 5 2HR 19.55 ng/L (0-15)
[2022-11-19 17:37] LABS: Troponin 5 2HR Delta -4.45 ABS# (0-10)
[2022-11-19] MEDS: sodium chloride 0.9% 500 ML 999 ML IV (18:28)
--- NOTE | 2022-11-19 19:24 | PC.NURSE ---
ambulated pt around nurses station. pt states he feels about the same. a little light headed . pt ambulating and getting off balance from time to time, but not stumbling.
== END 2022-11-19 20:14 | disposition home or self-care (01) ==
PROVIDERS: Emergency Provider Emergency Medicine; PCP Nurse Practitioner
DX: R42 Dizziness and giddiness (principal); R53.1 Weakness
CPT/HCPCS: 36415; 70450; 71045; 80053; 81001; 84443; 84484; 85025; 93005; 96360; 99285; J7040

== ENCOUNTER 2022-11-26 11:29 | Outpatient (CLI) | payer MEDICARE, SELFPAY ==
[2022-11-26 12:28] LABS: Estmated Average Glucose 203; Hemoglobin A1C 8.7 % (4.0-6.0)
[2022-11-26 12:31] LABS: Alanine Aminotransferase 18 U/L (0-41); Albumin Level 4.3 g/dL (3.5-5.2); Alkaline Phosphatase 74 U/L (40-130); Aspartate Amino Transferase 18 U/L (0-40); Blood Urea Nitrogen 12 mg/dL (8-23); Calcium 8.9 mg/dL (8.5-10.5); Carbon Dioxide 25 mmol/L (22-29); Chloride 103 mmol/L (98-107); Chol HDL Ratio 3.17 mg/dL (1.0-5.00); Cholesterol 114 mg/dL (0-200); Globulin 2.6 g/dL (1.3-4.6); Glomerular Filtration Rate 74.3 mL/min (90-130); Glucose 137 mg/dL (65-115); HDL Cholesterol 36 mg/dL (60-100); LDL Cholesterol Calculated 58 mg/dL (50-129); LDL HDL Ratio 1.61 RATIO (0.00-3.22); Osmolality Calculated 288 mOsm/kg (285-295); Sodium 138 mmol/L (136-145); Total Bilirubin 0.6 mg/dL (0.15-1.2); Total Protein 6.9 g/dL (6.6-8.7); Triglycerides 100 mg/dL (0-150)
[2022-11-26 12:33] LABS: Creatinine Urine, Random 35 mg/dL (39-259); Microalbumin Random Urine 9 ug/dL (0-20)
[2022-11-26 12:34] LABS: Microalbum Creatinine Ratio Ur 257 mg/dL (0-20)
== END 2022-11-26 11:30 | disposition home or self-care (01) ==
PROVIDERS: PCP Nurse Practitioner; Visit Provider Internal Medicine
DX: E11.65 Type 2 diabetes mellitus with hyperglycemia (principal); Z79.4 Long term (current) use of insulin; E78.2 Mixed hyperlipidemia
CPT/HCPCS: 36415; 80053; 80061; 82044; 83036

== ENCOUNTER → 2022-11-30 10:48 | Outpatient (BNVA) | payer MEDICARE, SELFPAY | PROVIDERS: PCP Nurse Practitioner; Visit Provider Internal Medicine | DX: E13.65 Other specified diabetes mellitus with hyperglycemia (principal); E78.2 Mixed hyperlipidemia; Z79.4 Long term (current) use of insulin; Z79.84 Long term (current) use of oral hypoglycemic drugs | CPT/HCPCS: 99214 ==

== ENCOUNTER → 2023-02-25 11:45 | Outpatient (BNVA) | payer MEDICARE, SELFPAY | PROVIDERS: PCP Nurse Practitioner; Visit Provider Nurse Practitioner | DX: I10 Essential (primary) hypertension (principal); E78.2 Mixed hyperlipidemia; F32.1 Major depressive disorder, single episode, moderate; Z12.5 Encounter for screening for malignant neoplasm of prostate; Z79.4 Long term (current) use of insulin; E11.65 Type 2 diabetes mellitus with hyperglycemia | CPT/HCPCS: 80053; 80061; 82043; 83036; G0103 ==

== ENCOUNTER → 2023-03-05 10:53 | Outpatient (BNVA) | payer MEDICARE, SELFPAY | PROVIDERS: PCP Nurse Practitioner; Visit Provider Internal Medicine | DX: E13.65 Other specified diabetes mellitus with hyperglycemia (principal); Z79.4 Long term (current) use of insulin; E78.2 Mixed hyperlipidemia; Z79.84 Long term (current) use of oral hypoglycemic drugs | CPT/HCPCS: 99214 ==

== ENCOUNTER 2023-05-28 11:14 | Outpatient (CLI) | payer MEDICARE, SELFPAY ==
[2023-05-28 12:03] LABS: Alanine Aminotransferase 15 U/L (0-41); Albumin Level 4.1 g/dL (3.5-5.2); Alkaline Phosphatase 104 U/L (40-130); Aspartate Amino Transferase 15 U/L (0-40); Blood Urea Nitrogen 17 mg/dL (8-23); Calcium 9.1 mg/dL (8.5-10.5); Carbon Dioxide 25 mmol/L (22-29); Chloride 101 mmol/L (98-107); Chol HDL Ratio 3.58 mg/dL (1.0-5.00); Cholesterol 118 mg/dL (0-200); Globulin 2.7 g/dL (1.3-4.6); Glomerular Filtration Rate 60.2 mL/min (90-130); Glucose 204 mg/dL (65-115); HDL Cholesterol 33 mg/dL (60-100); LDL Cholesterol Calculated 59 mg/dL (50-129); LDL HDL Ratio 1.79 RATIO (0.00-3.22); Osmolality Calculated 289 mOsm/kg (285-295); Sodium 136 mmol/L (136-145); Total Bilirubin 0.4 mg/dL (0.15-1.2); Total Protein 6.8 g/dL (6.6-8.7); Triglycerides 131 mg/dL (0-150)
[2023-05-28 12:17] LABS: Creatinine Urine, Random 184 mg/dL (39-259); Microalbumin Random Urine 32 ug/dL (0-20)
[2023-05-28 12:36] LABS: Microalbum Creatinine Ratio Ur 174 mg/dL (0-20)
[2023-05-28 12:47] LABS: Estmated Average Glucose 174; Hemoglobin A1C 7.7 % (4.0-6.0)
== END 2023-05-28 11:15 | disposition home or self-care (01) ==
LOC: LAB 11:18
PROVIDERS: PCP Nurse Practitioner; Visit Provider Internal Medicine
DX: E11.65 Type 2 diabetes mellitus with hyperglycemia (principal)
CPT/HCPCS: 80053; 80061; 82044; 83036

== ENCOUNTER → 2023-06-07 10:02 | Outpatient (BNVA) | payer MEDICARE, SELFPAY | PROVIDERS: PCP Nurse Practitioner; Visit Provider Internal Medicine | DX: E13.65 Other specified diabetes mellitus with hyperglycemia (principal); Z79.4 Long term (current) use of insulin; E78.2 Mixed hyperlipidemia; Z79.84 Long term (current) use of oral hypoglycemic drugs | CPT/HCPCS: 99214 ==

== ENCOUNTER → 2023-09-02 08:35 | Outpatient (BNVA) | payer MEDICARE, SELFPAY | PROVIDERS: PCP Nurse Practitioner; Visit Provider Internal Medicine | DX: E11.65 Type 2 diabetes mellitus with hyperglycemia (principal) | CPT/HCPCS: 80053; 80061; 82043; 83036 ==

== ENCOUNTER → 2023-09-10 09:50 | Outpatient (BNVA) | payer MEDICARE, SELFPAY | PROVIDERS: PCP Nurse Practitioner; Visit Provider Internal Medicine | DX: E13.65 Other specified diabetes mellitus with hyperglycemia; Z79.4 Long term (current) use of insulin; E78.2 Mixed hyperlipidemia; Z79.84 Long term (current) use of oral hypoglycemic drugs | CPT/HCPCS: 99214 ==

== ENCOUNTER 2023-12-09 13:37 | Outpatient (CLI) | payer MEDICARE, SELFPAY ==
[2023-12-09 14:39] LABS: Creatinine Urine, Random 65 mg/dL (39-259); Microalbumin Random Urine 9 ug/dL (0-20)
[2023-12-09 14:41] LABS: Microalbum Creatinine Ratio Ur 138 mg/dL (0-20)
[2023-12-09 15:06] LABS: Estmated Average Glucose 171; Hemoglobin A1C 7.6 % (4.0-6.0)
== END 2023-12-09 13:38 | disposition home or self-care (01) ==
LOC: LAB 13:38
PROVIDERS: PCP Nurse Practitioner; Visit Provider Internal Medicine
DX: E11.65 Type 2 diabetes mellitus with hyperglycemia (principal); E13.65 Other specified diabetes mellitus with hyperglycemia; Z79.4 Long term (current) use of insulin; E78.2 Mixed hyperlipidemia
CPT/HCPCS: 36415; 82044; 83036

== ENCOUNTER 2023-12-10 09:35 | Outpatient (CLI) | payer MEDICARE, SELFPAY ==
[2023-12-10 10:18] LABS: Alanine Aminotransferase 21 U/L (0-41); Albumin Level 4.2 g/dL (3.5-5.2); Alkaline Phosphatase 114 U/L (40-130); Anion Gap 15.3 (5-19); Aspartate Amino Transferase 16 U/L (0-40); Blood Urea Nitrogen 24 mg/dL (8-23); Calcium 9.1 mg/dL (8.5-10.5); Carbon Dioxide 26 mmol/L (22-29); Chloride 101 mmol/L (98-107); Chol HDL Ratio 2.88 mg/dL (1.0-5.00); Cholesterol 115 mg/dL (0-200); Globulin 3.1 g/dL (1.3-4.6); Glucose 213 mg/dL (65-115); HDL Cholesterol 40 mg/dL (60-100); LDL Cholesterol Calculated 58 mg/dL (50-129); LDL HDL Ratio 1.45 RATIO (0.00-3.22); Osmolality Calculated 296 mOsm/kg (285-295); Potassium 4.3 mmol/L (3.5-5.1); Sodium 138 mmol/L (136-145); Total Bilirubin 0.5 mg/dL (0.15-1.2); Total Protein 7.3 g/dL (6.6-8.7); Triglycerides 86 mg/dL (0-150)
== END 2023-12-10 09:36 | disposition home or self-care (01) ==
LOC: LAB 09:37
PROVIDERS: PCP Nurse Practitioner; Visit Provider Internal Medicine
DX: E11.65 Type 2 diabetes mellitus with hyperglycemia (principal); Z79.4 Long term (current) use of insulin; E78.2 Mixed hyperlipidemia
CPT/HCPCS: 36415; 80053; 80061

== ENCOUNTER → 2023-12-16 10:48 | Outpatient (BNVA) | payer MEDICARE, SELFPAY | PROVIDERS: PCP Nurse Practitioner; Visit Provider Internal Medicine | DX: E11.65 Type 2 diabetes mellitus with hyperglycemia (principal); Z79.4 Long term (current) use of insulin; E78.2 Mixed hyperlipidemia; Z79.84 Long term (current) use of oral hypoglycemic drugs | CPT/HCPCS: 99214 ==

== ENCOUNTER → 2024-03-12 08:48 | Outpatient (BNVA) | payer MEDICARE, SELFPAY | PROVIDERS: PCP Nurse Practitioner; Visit Provider Nurse Practitioner | DX: E11.65 Type 2 diabetes mellitus with hyperglycemia (principal); F32.1 Major depressive disorder, single episode, moderate | CPT/HCPCS: 80053; 80061; 82043; 82607; 83036 ==

== ENCOUNTER → 2024-03-18 09:44 | Outpatient (BNVA) | payer MEDICARE, SELFPAY | PROVIDERS: PCP Nurse Practitioner; Visit Provider Internal Medicine | DX: E13.65 Other specified diabetes mellitus with hyperglycemia (principal); Z79.4 Long term (current) use of insulin; E78.2 Mixed hyperlipidemia; N18.30 Chronic kidney disease, stage 3 unspecified; E13.22 Other specified diabetes mellitus with diabetic chronic kidney disease; Z79.84 Long term (current) use of oral hypoglycemic drugs | CPT/HCPCS: 99214 ==

== ENCOUNTER → 2024-08-17 12:21 | Outpatient (BNVA) | payer MEDICARE, SELFPAY | PROVIDERS: PCP Nurse Practitioner; Visit Provider Internal Medicine Cardiovascular Disease | DX: R07.9 Chest pain, unspecified (principal) | CPT/HCPCS: 93005 ==

== ENCOUNTER → 2024-09-04 10:51 | Outpatient (BNVA) | payer MEDICARE, SELFPAY | PROVIDERS: PCP Nurse Practitioner; Visit Provider Internal Medicine | DX: E11.65 Type 2 diabetes mellitus with hyperglycemia (principal); E13.65 Other specified diabetes mellitus with hyperglycemia; Z79.4 Long term (current) use of insulin; E78.2 Mixed hyperlipidemia | CPT/HCPCS: 80053; 80061; 82043; 83036 ==

== ENCOUNTER 2024-09-11 13:15 | Outpatient (CLI) | payer MEDICARE, SELFPAY ==
--- NOTE | 2024-09-11 14:15 | USCV_ITS ---
Varinder Andrew Age: 68 Gender: M : 1955 Exam Date: 09/11/2024 13:42 Ordering Phys: Andrei Puckett Technologist: ANTOINE [place] [facility] [facility] [place]: stenosis Risk Factors: Previous Vascular Surgery: Right Brachial BP: / Left Brachial BP: / Right Left Velocity (cm/s) Spectral Plaque Velocity (cm/s) Spectral Plaque Syst/Diast Broadening Syst/Diast Broadening 103.70/16.60 Prox CCA 117.50/ 19.60 114.60/18.70 Mid CCA 104.60/ 14.40 69.70/ 14.10 Distal CCA 95.50 / 16.30 44.40/ 12.10 Prox ICA 65.40 / 11.80 55.80/ 13.10 Mid ICA 72.40 / 20.20 60.90/ 22.60 Distal ICA 59.80 / 16.60 174.40 ECA 108.80 0.60 ICA/CCA 0.70 Antegrade Vertebral Antegrade 30.80/ 9.40 cm/s 32.50/ 6.60 cm/s Tri Subclavian Tri 191.5 96.90 0 CONCLUSIONS Right ICA stenosis <50%. Mild atheromatous plaque right carotid bulb/ICA. Left ICA stenosis <50%. Mild atheromatous plaque left carotid bulb/ICA. Normal antegrade Doppler flow noted in the right vertebral artery. Normal antegrade Doppler flow noted in the left vertebral artery. Alan Infante MD (Electronically Signed) Final Date: 11 September 2024 16:14 S
== END 2024-09-11 13:16 | disposition home or self-care (01) ==
PROVIDERS: PCP Nurse Practitioner; Visit Provider Nurse Practitioner
DX: R09.89 Other specified symptoms and signs involving the circulatory and respiratory systems (principal); I65.23 Occlusion and stenosis of bilateral carotid arteries
CPT/HCPCS: 93880

== ENCOUNTER 2024-09-14 09:18 | Outpatient (CLI) | payer MEDICARE, SELFPAY ==
--- NOTE | 2024-09-14 | ECG_ITS ---
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
[2024-09-14 10:15] VITALS: BMI 33.9
--- NOTE | 2024-09-14 10:18 | NMCV_ITS ---
NM florinda perf SPECT r/s* [id number] Varinder Andrew Age: 68 Gender: M : 1955 Exam Date: 09/14/2024 11:10 Ordering Phys: Juan Manzano MD ([email or web address]) Technologist: FLORINDA Hernandez Exam Location: [facility] Indications: cp STRESS TEST Please see separate stress test report in [facility] for full findings IMAGE PROTOCOL Rest/Stress 1 Lexiscan Day Radiopharmaceutical Dose (mCi) Administration Site Administered by Rest: Tc-99m 10.3 IV AI HernandezMT Sestamibi Stress:Tc-99m 33 IV Lisa Whitney, DICER MACHINE OPERATOR Sestamibi Rest: 14-Sep-2024 60 Discovery 630 Stress: 14-Sep-2024 30 Discovery 630 0.4mg Lexiscan. Supine position only as patient was unable to lay prone. SPECT RESULTS Technical Quality: Good Raw Data Analysis: Normal Image Corrections: No attenuation or motion correction applied Summed Stress Score: 0 Summed Rest Score: 1 Summed Difference Score: 0 PERFUSION FINDINGS There is medium sized area of reduced radiotracer uptake seen on the apical, anterior and inferior maki. This improves on stress imaging. This is consistent with medium sized area of attenuation artifact in these territories. FUNCTIONAL RESULTS (calculated via Gated SPECT) Stress Image LV EF (%): 58 Stress EDV (mL):142 TID: 0.94 Stress ESV (mL):59 FUNCTIONAL FINDINGS: There is normal left ventricular systolic function. IMPRESSIONS 1. Medium sized areas of attenuation artifact seen in apical, anterior and inferior maki. Less likely to be true perfusion defects. Clinical correlation required 2. LV systolic function is normal Jared Lozano MD (Electronically Signed) Final Date: 14 September 2024 17:21 S
[2024-09-14] MEDS: regadenoson 0.4 Mg/5 ml Syringe IVP (11:36)
[2024-09-14] MEDS: aminophylline 25 mg/mL SDV 20 mL IVP (11:46)
[2024-09-14 11:49] VITALS: BP 178/82; PULSE 80
== END 2024-09-14 09:19 | disposition home or self-care (01) ==
PROVIDERS: PCP Nurse Practitioner; Visit Provider Internal Medicine Cardiovascular Disease
DX: R06.02 Shortness of breath (principal)
CPT/HCPCS: 36415; 78452; 93017; 93306; 96374; 96375; A9500; J0280; J2785

== ENCOUNTER → 2024-09-16 09:24 | Outpatient (BNVA) | payer MEDICARE, SELFPAY | PROVIDERS: PCP Nurse Practitioner; Visit Provider Internal Medicine | DX: E11.65 Type 2 diabetes mellitus with hyperglycemia (principal); N18.30 Chronic kidney disease, stage 3 unspecified; Z79.4 Long term (current) use of insulin; E78.2 Mixed hyperlipidemia | CPT/HCPCS: 99214 ==

== ENCOUNTER → 2025-02-23 08:07 | Outpatient (BNVA) | payer MEDICARE, SELFPAY | PROVIDERS: PCP Nurse Practitioner; Visit Provider Nurse Practitioner | DX: I10 Essential (primary) hypertension (principal); E11.65 Type 2 diabetes mellitus with hyperglycemia; R53.83 Other fatigue; N18.30 Chronic kidney disease, stage 3 unspecified; E78.2 Mixed hyperlipidemia | CPT/HCPCS: 80053; 80061; 82040; 82043; 83036; 84270; 84403; 84443 ==

== ENCOUNTER → 2025-03-18 10:37 | Outpatient (BNVA) | payer MEDICARE, SELFPAY | PROVIDERS: PCP Nurse Practitioner; Visit Provider Internal Medicine | DX: E13.65 Other specified diabetes mellitus with hyperglycemia (principal); Z79.4 Long term (current) use of insulin; E78.2 Mixed hyperlipidemia; N18.30 Chronic kidney disease, stage 3 unspecified | CPT/HCPCS: 99214 ==

== ENCOUNTER → 2025-04-26 10:31 | Outpatient (BNVA) | payer MEDICARE, SELFPAY | PROVIDERS: PCP Nurse Practitioner; Visit Provider Nurse Practitioner Family | DX: N39.0 Urinary tract infection, site not specified (principal); R30.0 Dysuria | CPT/HCPCS: 81003; 87086 ==

== ENCOUNTER → 2025-05-10 09:43 | Outpatient (BNVA) | payer MEDICARE, SELFPAY | PROVIDERS: PCP Nurse Practitioner; Visit Provider Nurse Practitioner | DX: I10 Essential (primary) hypertension (principal); E13.65 Other specified diabetes mellitus with hyperglycemia; E55.9 Vitamin D deficiency, unspecified | CPT/HCPCS: 80053; 80061; 82043; 82306; 83036 ==

== ENCOUNTER → 2025-05-17 09:46 | Outpatient (BNVA) | payer MEDICARE, SELFPAY | PROVIDERS: PCP Nurse Practitioner; Visit Provider Nurse Practitioner | DX: E13.65 Other specified diabetes mellitus with hyperglycemia (principal) | CPT/HCPCS: 81000 ==